=== PATIENT | female | born 1980 | race Caucasian/White ===

== ENCOUNTER 2017-07-06 10:29 | Emergency (ER) | payer SELFPAY ==
[2017-07-06 10:41] VITALS: BP 121/65
[2017-07-06 11:16] LABS: Mean Corpuscular HGB Conc 29 % (30-34); Platelet Count 397 K/mm3 (140-440); Red Blood Count 4.32 M/mm3 (3.65-5.03); White Blood Count 6.1 K/mm3 (4.5-11.0)
[2017-07-06 11:30] LABS: Hematocrit 26.2 % (30.3-42.9); Hemoglobin 7.7 gm/dl (10.1-14.3); Mean Corpuscular Hemoglobin 18 pg (28-32); Mean Corpuscular Volume 61 fl (79-97); Red Cell Distribution Width 28.4 % (13.2-15.2)
[2017-07-06 11:45] LABS: Anion Gap 17 mmol/L; Calcium 8.6 mg/dL (8.4-10.2); Carbon Dioxide 23 mmol/L (22-30); Potassium 4.1 mmol/L (3.6-5.0); Sodium 140 mmol/L (137-145)
[2017-07-06 12:08] LABS: Blood Urea Nitrogen 12 mg/dL (7-17); Glucose 89 mg/dL (65-100)
--- NOTE | 2017-07-06 12:09 | Cat Scan Report ---
CT HEAD WITHOUT CONTRAST: HISTORY: Headache, eye pressure. Serial contiguous axial images were obtained through the cranium. Intravenous contrast material was not administered. The ventricles are normal in size and appearance. There is no mass effect or midline shift. No areas of abnormally increased or decreased attenuation are seen. No mass lesion is seen. The mastoid air cells and visualized portions of the sinuses are normal. IMPRESSION: Cranial CT scan within normal limits.
[2017-07-06 12:28] LABS: Albumin 3.9 g/dL (3.9-5); Albumin/Globulin Ratio 1.1 %; Alkaline Phosphatase 45 units/L (35-129); Total Protein 7.5 g/dL (6.3-8.2)
[2017-07-06 12:40] LABS: Alanine Aminotransferase < 5 units/L (7-56); Bilirubin,Direct < 0.2 mg/dL (0-0.2); Bilirubin,Indirect 0.1 mg/dL
[2017-07-06 13:01] LABS: Basophils % (Manual) 0 % (0.0-1.8); Blastocytes % (Manual) 0 %; Eosinophils % (Manual) 8 % (0.0-4.3)
[2017-07-06 13:03] LABS: Hypochromasia 3+
[2017-07-06 13:04] LABS: Anisocytosis 3+; Microcytosis 2+
[2017-07-06 13:05] LABS: Diff Status Complete; Elliptocytes 1+; Poikilocytosis 1+
== END 2017-07-06 10:54 | disposition left against medical advice (07) ==
LOC: ED 10:29
DX: R51 Headache (principal); Z53.21 Procedure and treatment not carried out due to patient leaving prior to being seen by health care provider
CPT/HCPCS: 36415; 70450; 80048; 80074; 84703; 85007; 85025

== ENCOUNTER 2019-09-01 07:32 | Inpatient (IN) | payer OTHER ==
[2019-09-01] MEDS ORDERED: ONDANSETRON 4 MG/2 ML INJ IV ONE (08:15)
[2019-09-01] MEDS ORDERED: HYDROmorphone 1 MG/1 ML INJ IV ONE ×3 (08:15→10:52)
--- NOTE | 2019-09-01 08:19 | Emergency Department Report ---
ED Headache HPI - General Chief Complaint: Headache Stated Complaint: SEVERE HEADACHE SINCE FRIDAY Time Seen by Provider: 09/01/19 08:13 Source: patient Exam Limitations: no limitations - History of Present Illness Initial Comments: is a 39-year-old female that presents emergency room with complaints of left-sided headache. Patient states that her headache started approximately one week ago. Patient states the pain is worsening. Patient states the pain is extreme and severe. Patient states it is a 10 out of 10. Patient states the stabbing sensation. Patient states she has pseudotumor cerebri and was being followed by a neurologist but has not seen a neurologist for 2 years. Timing/Duration: 1 week Quality: severe, sharp, stabbing Head Injury Location: temporal Recent Head Trauma: no recent headache/trauma, occasional headaches Modifying Factors: improves with: exposure to light, movement, rest Associated Symptoms: fever/chills, nausea/vomiting Allergies/Adverse Reactions: Allergies No Known Allergies Allergy (Unverified 07/06/17 10:41) Home Medications: Ambulatory Orders No Known Home Medications [No Reported Home Medications] 09/01/19 ED Review of Systems ROS: Stated complaint: SEVERE HEADACHE SINCE FRIDAY Other details as noted in HPI Constitutional: chills, fever Eyes: denies: eye pain, eye discharge, vision change ENT: denies: ear pain, throat pain Respiratory: denies: cough, shortness of breath, wheezing Cardiovascular: denies: chest pain, palpitations Endocrine: no symptoms reported Gastrointestinal: denies: abdominal pain, nausea, diarrhea Genitourinary: denies: urgency, dysuria, discharge Musculoskeletal: denies: back pain, joint swelling, arthralgia Skin: denies: rash, lesions Neurological: headache. denies: weakness, paresthesias Psychiatric: denies: anxiety, depression Hematological/Lymphatic: denies: easy bleeding, easy bruising ED Past Medical Hx - Past Medical History Previous Medical History?: Yes Additional medical history: Pseudotumor Cerebri (diag in 2002). No longer being treated for contidition. - Surgical History Past Surgical History?: Yes Additional Surgical History: 2009 - Family History Family history: no significant - Social History Smoking Status: Never Smoker Substance Use Type: None - Medications Home Medications: Home Medications Medication Instructions Recorded Confirmed Last Taken Type No Known Home Medications [No 09/01/19 09/01/19 Unknown History Reported Home Medications] ED Physical Exam - General Limitations: No Limitations General appearance: alert, in no apparent distress - Head Head exam: Present: atraumatic, normocephalic - Eye Eye exam: Present: normal appearance, PERRL Pupils: Present: normal accommodation - ENT ENT exam: Present: mucous membranes moist - Neck Neck exam: Present: normal inspection, full ROM. Absent: tenderness, meningismus - Respiratory Respiratory exam: Present: normal lung sounds bilaterally. Absent: respiratory distress, wheezes, rales - Cardiovascular Cardiovascular Exam: Present: regular rate, normal rhythm. Absent: systolic murmur, diastolic murmur, rubs, gallop - GI/Abdominal GI/Abdominal exam: Present: soft, normal bowel sounds - Extremities Exam Extremities exam: Present: normal inspection - Back Exam Back exam: Present: normal inspection - Neurological Exam Neurological exam: Present: alert, oriented X3 - Psychiatric Psychiatric exam: Present: normal affect, normal mood - Skin Skin exam: Present: warm, dry, intact, normal color. Absent: rash ED Course Vital Signs 09/01/19 09/01/19 09/01/19 07:38 07:45 08:00 Temperature 99.5 F 100.6 F H Temperature [ Pre-Procedure] Pulse Rate 134 H 120 H 110 H Pulse Rate [ Intra-Procedure ] Pulse Rate [ Post-Procedure] Pulse Rate [Pre -Procedure] Respiratory 22 27 H 32 H Rate Respiratory Rate [Intra- Procedure] Respiratory Rate [Post- Procedure] Respiratory Rate [Pre- Procedure] Blood Pressure 126/60 Blood Pressure [Intra- Procedure] Blood Pressure 130/65 [Left] Blood Pressure [Post-Procedure ] Blood Pressure [Pre-Procedure] Blood Pressure 120/79 [Right] O2 Sat by Pulse 100 100 100 Oximetry O2 Sat by Pulse Oximetry [ Intra-Procedure ] O2 Sat by Pulse Oximetry [Post -Procedure] O2 Sat by Pulse Oximetry [Pre- Procedure] 09/01/19 09/01/19 09/01/19 08:15 08:45 09:00 Temperature Temperature [ Pre-Procedure] Pulse Rate 107 H 120 H 114 H Pulse Rate [ Intra-Procedure ] Pulse Rate [ Post-Procedure] Pulse Rate [Pre -Procedure] Respiratory 37 H 47 H 25 H Rate Respiratory Rate [Intra- Procedure] Respiratory Rate [Post- Procedure] Respiratory Rate [Pre- Procedure] Blood Pressure 117/67 117/67 117/69 Blood Pressure [Intra- Procedure] Blood Pressure [Left] Blood Pressure [Post-Procedure ] Blood Pressure [Pre-Procedure] Blood Pressure [Right] O2 Sat by Pulse 97 100 99 Oximetry O2 Sat by Pulse Oximetry [ Intra-Procedure ] O2 Sat by Pulse Oximetry [Post -Procedure] O2 Sat by Pulse Oximetry [Pre- Procedure] 09/01/19 09/01/19 09/01/19 09:31 09:45 10:01 Temperature Temperature [ Pre-Procedure] Pulse Rate 110 H 104 H 133 H Pulse Rate [ Intra-Procedure ] Pulse Rate [ Post-Procedure] Pulse Rate [Pre -Procedure] Respiratory 18 26 H 18 Rate Respiratory Rate [Intra- Procedure] Respiratory Rate [Post- Procedure] Respiratory Rate [Pre- Procedure] Blood Pressure 117/69 117/69 117/69 Blood Pressure [Intra- Procedure] Blood Pressure [Left] Blood Pressure [Post-Procedure ] Blood Pressure [Pre-Procedure] Blood Pressure [Right] O2 Sat by Pulse Oximetry O2 Sat by Pulse Oximetry [ Intra-Procedure ] O2 Sat by Pulse Oximetry [Post -Procedure] O2 Sat by Pulse Oximetry [Pre- Procedure] 09/01/19 09/01/19 09/01/19 10:15 10:30 10:45 Temperature 100.0 F H Temperature [ 100.0 F H Pre-Procedure] Pulse Rate 109 H 130 H Pulse Rate [ 123 H Intra-Procedure ] Pulse Rate [ Post-Procedure] Pulse Rate [Pre 130 H -Procedure] Respiratory 15 15 Rate Respiratory 17 Rate [Intra- Procedure] Respiratory Rate [Post- Procedure] Respiratory 15 Rate [Pre- Procedure] Blood Pressure 117/69 Blood Pressure 109/67 [Intra- Procedure] Blood Pressure 108/55 [Left] Blood Pressure [Post-Procedure ] Blood Pressure 108/55 [Pre-Procedure] Blood Pressure [Right] O2 Sat by Pulse 100 Oximetry O2 Sat by Pulse 100 Oximetry [ Intra-Procedure ] O2 Sat by Pulse Oximetry [Post -Procedure] O2 Sat by Pulse 100 Oximetry [Pre- Procedure] 09/01/19 09/01/19 09/01/19 10:54 13:06 13:33 Temperature 98.4 F Temperature [ Pre-Procedure] Pulse Rate 101 H 117 H Pulse Rate [ Intra-Procedure ] Pulse Rate [ 127 H Post-Procedure] Pulse Rate [Pre -Procedure] Respiratory 18 20 Rate Respiratory Rate [Intra- Procedure] Respiratory 24 Rate [Post- Procedure] Respiratory Rate [Pre- Procedure] Blood Pressure Blood Pressure [Intra- Procedure] Blood Pressure 113/61 119/62 [Left] Blood Pressure 131/64 [Post-Procedure ] Blood Pressure [Pre-Procedure] Blood Pressure [Right] O2 Sat by Pulse 97 100 Oximetry O2 Sat by Pulse Oximetry [ Intra-Procedure ] O2 Sat by Pulse 100 Oximetry [Post -Procedure] O2 Sat by Pulse Oximetry [Pre- Procedure] 09/01/19 09/01/19 13:38 13:53 Temperature 98.4 F 99.0 F Temperature [ Pre-Procedure] Pulse Rate 117 H 109 H Pulse Rate [ Intra-Procedure ] Pulse Rate [ Post-Procedure] Pulse Rate [Pre -Procedure] Respiratory 15 16 Rate Respiratory Rate [Intra- Procedure] Respiratory Rate [Post- Procedure] Respiratory Rate [Pre- Procedure] Blood Pressure 119/62 118/75 Blood Pressure [Intra- Procedure] Blood Pressure [Left] Blood Pressure [Post-Procedure ] Blood Pressure [Pre-Procedure] Blood Pressure [Right] O2 Sat by Pulse 100 100 Oximetry O2 Sat by Pulse Oximetry [ Intra-Procedure ] O2 Sat by Pulse Oximetry [Post -Procedure] O2 Sat by Pulse Oximetry [Pre- Procedure] - Reevaluation(s) Reevaluation #1: pt attempted to ambulate to the bathroom but was unable to due to weakness. 09/01/19 08:27 Reevaluation #2: Patient states her headache is better. 09/01/19 09:27 Reevaluation #3: Due to patient's clinical situation we will do a LP. Patient has agreed to have the LP done. Patient signed consent. See procedure note. 09/01/19 10:01 Reevaluation #4: I was unable to obtain CSF during LP. Patient will go to radiology and have a fluoroscopy-guided lumbar puncture. I will discuss the case with the radiologist. 09/01/19 10:52 Reevaluation #5: Discussed all results with patient. I discussed plan of care with patient. Patient agrees with plan of care. She states her headache is improving since having the LP done. 09/01/19 13:45 - Consultations Consultation #1: ID consulted for meningitis management. Recommendations for treatment from Dr. Levin. 09/01/19 09:46 I discussed clinical situation with Dr. Levin, infectious disease. I discussed all results with Dr. Levin. Dr. Levin asked for a consult placed. 09/01/19 13:20 Consultation #2: Hospitalist consult for admission. Hospitalist admit patient. Bridge orders place. 09/01/19 10:22 Consultation #3: I discussed case with Dr. Newell. Dr. Newell states he will do a fluoroscopy guided LP. 09/01/19 11:02 - Lumbar Puncture Consent Obtained: verbal consent, written consent Time Out Performed: Yes Indication for Procedure: headache, fever work up Patient Position: left lateral decubitus Skin Prep: Povidone-Iodine 1% Local Anesthetic Used: Lidocaine 1% Amount of anesthesia used (mls): 6 Spinal Needle Gauge: 20G Spinal Needle Length: 4in Interspace Used: L4-L5 Complications: unable to obtain CSF Patient Tolerated Procedure: well, no complications Additional Comments: Unable to obtain CSF. Patient will be sent to radiology for fluoroscopy guided LP ED Medical Decision Making - Lab Data Result diagrams: 09/01/19 08:25 09/01/19 08:25 - Radiology Data Radiology results: report reviewed, image reviewed No acute findings on head CT. - Medical Decision Making Patient is a 39-year-old male that presents emergency room with complaints of headache and fever. Patient has a history of pseudotumor cerebri. Patient has had multiple LPs in the past. Due to the patient's clinical scenario, the patient had an LP done. Patient's LP was difficult and had to be done in the radiology department under fluoroscopy. Patient's CSF since the labs unremarkable. Patient states labs unremarkable except for a UTI, elevated WBC and severe anemia. Required multiple pain medications. Patient had an abnormal gait due to her headache and weakness. Patient admitted to the hospitalist service. Infectious disease consultation for assistance in recommendations with management of the patient. Patient's clinical findings consistent with a headache, intractable pain, weakness, Sirs, severe anemia. Patient was transfused in the ER. - Differential Diagnosis headache. Intractable pain. Weakness. Meningitis. Pseudotumor. sirs Critical Care Time: Yes Critical care time in (mins) excluding proc time.: 80 Critical care attestation.: If time is entered above; I have spent that time in minutes in the direct care of this critically ill patient, excluding procedure time. Critical Care Time: 80 minutes ED Disposition Clinical Impression: SIRS (systemic inflammatory response syndrome), Weakness, Tachycardia Headache Qualifiers: Headache type: unspecified Headache chronicity pattern: acute headache Intractability: intractable Qualified Code(s): R51 - Headache UTI (urinary tract infection) Qualifiers: Urinary tract infection type: acute cystitis Hematuria presence: with hematuria Qualified Code(s): N30.01 - Acute cystitis with hematuria Anemia Qualifiers: Anemia type: unspecified type Qualified Code(s): D64.9 - Anemia, unspecified Fever Qualifiers: Fever type: unspecified Qualified Code(s): R50.9 - Fever, unspecified Disposition: 09 OP ADMIT IP TO THIS HOSP Is pt being admited?: Yes Does the pt Need Aspirin: No Condition: Critical Time of Disposition: 11:01
[2019-09-01 08:57] LABS: Mean Corpuscular HGB Conc 27 % (30-34); Platelet Count 423 K/mm3 (140-440); Red Blood Count 4.21 M/mm3 (3.65-5.03)
[2019-09-01 08:58] LABS: Hematocrit 22.6 % (30.3-42.9); Mean Corpuscular Volume 54 fl (79-97)
[2019-09-01 09:03] LABS: Alanine Aminotransferase 22 units/L (7-56); Albumin 3.6 g/dL (3.9-5); BUN/Creatinine Ratio 11; Blood Urea Nitrogen 8 mg/dL (7-17); Calcium 8.8 mg/dL (8.4-10.2); Hemolysis Index 8
[2019-09-01 09:21] LABS: Erythrocyte Sedimentation Rate > 140.0 mm/Hr (0-20)
[2019-09-01 09:36] LABS: Bacteria,Urine 1+ /HPF (Negative); Bilirubin,Urine NEG (Negative); Blood,Urine LG (Negative); Color,Urine Yellow (Yellow); Mucus,Urine FEW /HPF
--- NOTE | 2019-09-01 09:36 | Cat Scan Report ---
CT HEAD WITHOUT CONTRAST INDICATION / CLINICAL INFORMATION: Headache. TECHNIQUE: Axial imaging performed from the skull apex through the skull base without the use of cont rast. Sagittal and coronal reformatted images. All CT scans at this location are performed using CT dose reduction for ALARA by means of automated exposure control. COMPARISON: 07/06/2017 FINDINGS: CEREBRAL PARENCHYMA: No significant abnormality. No acute territorial infarct. HEMORRHAGE: None. EXTRA-AXIAL SPACES: Normal in size and morphology for the patient's age. VENTRICULAR SYSTEM: Normal in size and morphology for the patient's age. MIDLINE SHIFT OR HERNIATION: None. CEREBELLUM / BRAINSTEM: No significant abnormality. CALVARIUM: No significant abnormality. ORBITS: Normal as visualized. PARANASAL SINUSES / MASTOID AIR CELLS: Normal as visualized. SOFT TISSUES of HEAD: No significant abnormality. ADDITIONAL FINDINGS: None. IMPRESSION: No acute intracranial abnormality. Cranial CT scan within normal limits. Signer Name: Peter Newell Jr, MD Signed: 09/01/2019 9:31 AM Workstation Name: [id number]
[2019-09-01 09:40] LABS: RBC,Urine > 182.0 /HPF (0.0-6.0)
[2019-09-01 09:54] LABS: Eosinophils % (Manual) 0 % (0.0-4.3); Hypochromasia 3+; Target Cells Few; Tear Drop Cells Few; Total Cells Counted 100
[2019-09-01 09:55] LABS: Anisocytosis 2+; Large Platelets Rare; Platelet Clumps Rare; Platelet Estimate Consistent w Auto
[2019-09-01] MEDS ORDERED: cefTRIAXone/NS 2 GM/100 ML 2 GM/100 ML BAG IV ONE ×2 (10:03→12:29)
[2019-09-01] MEDS ORDERED: methylPREDNISolone Sod Succinate 125 MG/2 ML INJ IV ONE (10:11)
[2019-09-01] MEDS ORDERED: HYDROmorphone 1 MG/1 ML INJ ONE ×2 (10:28→10:47)
[2019-09-01] MEDS ORDERED: ACYCLOVIR IV ONE ×2 (10:30→11:00)
[2019-09-01] MEDS ORDERED: SODIUM CHLORIDE 0.9% IV ONE ×2 (10:30→11:00)
[2019-09-01] MEDS ORDERED: LIDOCAINE (1%) 10 MG/1 ML VIAL 20 ML MDV INFILTRATI ONE (10:40)
[2019-09-01] MEDS: LIDOCAINE (1%) 10 MG/1 ML VIAL 20 ML MDV ONE ×2 (10:45→13:55)
[2019-09-01] MEDS ORDERED: LIDOCAINE (1%) 10 MG/1 ML VIAL 20 ML MDV ONE (10:47)
[2019-09-01] MEDS ORDERED: SODIUM CHLORIDE 0.9% 1000 ML 1,000 ML ONE (10:48)
[2019-09-01] MEDS ORDERED: SODIUM CHLORIDE 0.9% 1000 ML 1,000 ML IV ONE (10:54)
[2019-09-01] MEDS ORDERED: SODIUM CHLORIDE 0.9% 500 ML 500 ML IV ONE (12:10)
[2019-09-01] MEDS ORDERED: CEFEPIME/NS 2 GM/100 ML 2 GM/100 ML BAG IV ONE (12:29)
--- NOTE | 2019-09-01 12:34 | History and Physical Report ---
History of Present Illness Date of admission: 09/01/19 10:10 Chief complaint: fever and WINKLER History of present illness: 39-year-old woman who presents to the hospital with headache and fevers. She is also complaining of menorrhagia she is currently on her period. She is been having heavier and heavier periods for some time now. She is vegan and has been trying to keep up with her iron intake but admits that it has been difficult. Patient denies neck stiffness, denies diarrhea, denies cough, denies sputum production. She denies any visual changes. No blurred vision, no loss of vision At this time the patient reports a frontal headache which is about 6 out of 10. Symptoms have been going on for a few days. Denies any sick contacts. Past History Past Medical History: No medical history Past Surgical History: Other (underarm lipoma removed as child) Social history: no significant social history. denies: smoking, alcohol abuse, prescription drug abuse, IV drug use Family history: other (paternal aunt has breast ca, sister has anemia) Medications and Allergies Allergies Allergy/AdvReac Type Severity Reaction Status Date / Time No Known Allergies Allergy Unverified 07/06/17 10:41 Home Medications Medication Instructions Recorded Confirmed Last Taken Type No Known Home Medications [No 09/01/19 09/01/19 Unknown History Reported Home Medications] Active Meds: Active Medications Acyclovir 830 mg/ Sodium (Chloride) 266.6 mls @ 100 mls/hr IV ONCE ONE; Protocol Stop: 09/01/19 13:39 Review of Systems All systems: negative Constitutional: weakness, no weight loss Ears, nose, mouth and throat: no ear pain Cardiovascular: no chest pain Respiratory: no cough Gastrointestinal: no nausea Genitourinary Female: dysmenorrhea, menorrhagia Menstruation: currently menstrual Musculoskeletal: no neck stiffness Integumentary: no rash Neurological: no head injury Psychiatric: no anxiety Endocrine: no cold intolerance Hematologic/Lymphatic: no easy bruising Allergic/Immunologic: no urticaria Exam - Constitutional Vitals: Temp Pulse Resp BP Pulse Ox 100.0 F H 127 H 24 131/64 100 09/01/19 10:30 09/01/19 10:54 09/01/19 10:54 09/01/19 10:54 09/01/19 10:54 General appearance: Present: no acute distress, well-nourished - EENT Eyes: Present: PERRL ENT: hearing intact, clear oral mucosa - Neck Neck: Present: supple, normal ROM - Respiratory Respiratory effort: normal Respiratory: bilateral: CTA - Cardiovascular Heart Sounds: Present: S1 & S2. Absent: rub, click - Extremities Extremities: pulses symmetrical, No edema Peripheral Pulses: within normal limits - Abdominal General gastrointestinal: Present: soft, non-tender, non-distended, normal bowel sounds Female genitourinary: Present: normal - Integumentary Integumentary: Present: clear, warm, dry - Musculoskeletal Musculoskeletal: gait normal, strength equal bilaterally - Psychiatric Psychiatric: appropriate mood/affect, intact judgment & insight - Neurologic Neurologic: CNII-XII intact, moves all extremities Results - Labs CBC & Chem 7: 09/01/19 08:25 09/01/19 08:25 Labs: Laboratory Last Values WBC 18.9 K/mm3 (4.5-11.0) H 09/01/19 08:25 RBC 4.21 M/mm3 (3.65-5.03) 09/01/19 08:25 Hgb 6.0 gm/dl (10.1-14.3) L 09/01/19 08:25 Hct 22.6 % (30.3-42.9) L 09/01/19 08:25 MCV 54 fl (79-97) L 09/01/19 08:25 MCH 14 pg (28-32) L 09/01/19 08:25 MCHC 27 % (30-34) L 09/01/19 08:25 RDW 26.0 % (13.2-15.2) H 09/01/19 08:25 Plt Count 423 K/mm3 (140-440) 09/01/19 08:25 Lymph % (Auto) [employer] 09/01/19 08:25 [place] % (Auto) [employer] 09/01/19 08:25 Eos % (Auto) [employer] 09/01/19 08:25 Baso % (Auto) [employer] 09/01/19 08:25 Lymph # [employer] 09/01/19 08:25 [place] # [employer] 09/01/19 08:25 Eos # [employer] 09/01/19 08:25 Baso # [employer] 09/01/19 08:25 Add Manual Diff Complete 09/01/19 08:25 Total Counted 100 09/01/19 08:25 Seg Neutrophils % [employer] 09/01/19 08:25 Seg Neuts % (Manual) 77.0 % (40.0-70.0) H 09/01/19 08:25 Band Neutrophils % 0 % 09/01/19 08:25 Lymphocytes % (Manual) 13.0 % (13.4-35.0) L 09/01/19 08:25 Reactive Lymphs % (Man) 1.0 % 09/01/19 08:25 Monocytes % (Manual) 8.0 % (0.0-7.3) H 09/01/19 08:25 Eosinophils % (Manual) 0 % (0.0-4.3) 09/01/19 08:25 Basophils % (Manual) 1.0 % (0.0-1.8) 09/01/19 08:25 Metamyelocytes % 0 % 09/01/19 08:25 Myelocytes % 0 % 09/01/19 08:25 Promyelocytes % 0 % 09/01/19 08:25 Blast Cells % 0 % 09/01/19 08:25 Nucleated RBC % Not Reportable 09/01/19 08:25 Seg Neutrophils # [employer] 09/01/19 08:25 Seg Neutrophils # Man 14.6 K/mm3 (1.8-7.7) H 09/01/19 08:25 Band Neutrophils # 0.0 K/mm3 09/01/19 08:25 Lymphocytes # (Manual) 2.5 K/mm3 (1.2-5.4) 09/01/19 08:25 Abs React Lymphs (Man) 0.2 K/mm3 09/01/19 08:25 Monocytes # (Manual) 1.5 K/mm3 (0.0-0.8) H 09/01/19 08:25 Eosinophils # (Manual) 0.0 K/mm3 (0.0-0.4) 09/01/19 08:25 Basophils # (Manual) 0.2 K/mm3 (0.0-0.1) H 09/01/19 08:25 Metamyelocytes # 0.0 K/mm3 09/01/19 08:25 Myelocytes # 0.0 K/mm3 09/01/19 08:25 Promyelocytes # 0.0 K/mm3 09/01/19 08:25 Blast Cells # 0.0 K/mm3 09/01/19 08:25 WBC Morphology Not Reportable 09/01/19 08:25 Hypersegmented Neuts Not Reportable 09/01/19 08:25 Hyposegmented Neuts Not Reportable 09/01/19 08:25 Hypogranular Neuts Not Reportable 09/01/19 08:25 Smudge Cells Not Reportable 09/01/19 08:25 Toxic Granulation Not Reportable 09/01/19 08:25 Toxic Vacuolation Not Reportable 09/01/19 08:25 Dohle Bodies Not Reportable 09/01/19 08:25 Pelger-Huet Anomaly Not Reportable 09/01/19 08:25 Bhaskar Rods Not Reportable 09/01/19 08:25 Platelet Estimate Consistent w auto 09/01/19 08:25 Clumped Platelets Rare 09/01/19 08:25 Plt Clumps, EDTA Not Reportable 09/01/19 08:25 Large Platelets Rare 09/01/19 08:25 Giant Platelets Not Reportable 09/01/19 08:25 Platelet Satelliting Not Reportable 09/01/19 08:25 Plt Morphology Comment Not Reportable 09/01/19 08:25 RBC Morphology Not Reportable 09/01/19 08:25 Dimorphic RBCs Not Reportable 09/01/19 08:25 Polychromasia Not Reportable 09/01/19 08:25 Hypochromasia 3+ 09/01/19 08:25 Poikilocytosis Not Reportable 09/01/19 08:25 Anisocytosis 2+ 09/01/19 08:25 Microcytosis 2+ 09/01/19 08:25 Macrocytosis Not Reportable 09/01/19 08:25 Spherocytes Not Reportable 09/01/19 08:25 Pappenheimer Bodies Not Reportable 09/01/19 08:25 Sickle Cells Not Reportable 09/01/19 08:25 Target Cells Few 09/01/19 08:25 Tear Drop Cells Few 09/01/19 08:25 Ovalocytes Not Reportable 09/01/19 08:25 Helmet Cells Not Reportable 09/01/19 08:25 [place] Bodies Not Reportable 09/01/19 08:25 [place] Rings Not Reportable 09/01/19 08:25 [place] Cells Not Reportable 09/01/19 08:25 Bite Cells Not Reportable 09/01/19 08:25 Crenated Cell Not Reportable 09/01/19 08:25 Elliptocytes Not Reportable 09/01/19 08:25 Acanthocytes (Spur) Not Reportable 09/01/19 08:25 Rouleaux Not Reportable 09/01/19 08:25 Hemoglobin C Crystals Not Reportable 09/01/19 08:25 Schistocytes Not Reportable 09/01/19 08:25 Malaria parasites Not Reportable 09/01/19 08:25 ESR > 140.0 mm/Hr (0-20) 09/01/19 08:25 Navneet Bodies Not Reportable 09/01/19 08:25 Hem Pathologist Commnt No 09/01/19 08:25 Sodium 136 mmol/L (137-145) L 09/01/19 08:25 Potassium 4.1 mmol/L (3.6-5.0) 09/01/19 08:25 Chloride 99.3 mmol/L (98-107) 09/01/19 08:25 Carbon Dioxide 19 mmol/L (22-30) L 09/01/19 08:25 Anion Gap 22 mmol/L 09/01/19 08:25 BUN 8 mg/dL (7-17) 09/01/19 08:25 Creatinine 0.7 mg/dL (0.7-1.2) 09/01/19 08:25 Estimated GFR > 60 ml/min 09/01/19 08:25 BUN/Creatinine Ratio 11 % 09/01/19 08:25 Glucose 101 mg/dL (65-100) H 09/01/19 08:25 Lactic Acid 1.60 mmol/L (0.7-2.0) 09/01/19 09:29 Calcium 8.8 mg/dL (8.4-10.2) 09/01/19 08:25 Total Bilirubin 0.50 mg/dL (0.1-1.2) 09/01/19 08:25 AST 50 units/L (5-40) H 09/01/19 08:25 ALT 22 units/L (7-56) 09/01/19 08:25 Alkaline Phosphatase 129 units/L (35-129) 09/01/19 08:25 Total Protein 9.0 g/dL (6.3-8.2) H 09/01/19 08:25 Albumin 3.6 g/dL (3.9-5) L 09/01/19 08:25 Albumin/Globulin Ratio 0.7 % 09/01/19 08:25 HCG, Qual Negative (Negative) 09/01/19 09:29 Urine Color Yellow (Yellow) 09/01/19 09:11 Urine Turbidity Slightly-cloudy (Clear) 09/01/19 09:11 Urine pH 8.0 (5.0-7.0) H 09/01/19 09:11 Ur Specific [place] 1.015 (1.003-1.030) 09/01/19 09:11 Urine Protein 100 mg/dl mg/dL (Negative) 09/01/19 09:11 Urine Glucose (UA) Neg mg/dL (Negative) 09/01/19 09:11 Urine Ketones Neg mg/dL (Negative) 09/01/19 09:11 Urine Blood Lg (Negative) 09/01/19 09:11 Urine Nitrite Neg (Negative) 09/01/19 09:11 Urine Bilirubin Neg (Negative) 09/01/19 09:11 Urine Urobilinogen 4.0 mg/dL (<2.0) 09/01/19 09:11 Ur Leukocyte Esterase Mod (Negative) 09/01/19 09:11 Urine WBC (Auto) 81.0 /HPF (0.0-6.0) H 09/01/19 09:11 Urine RBC (Auto) > 182.0 /HPF (0.0-6.0) 09/01/19 09:11 U Epithel Cells (Auto) 3.0 /HPF (0-13.0) 09/01/19 09:11 Urine Bacteria (Auto) 1+ /HPF (Negative) 09/01/19 09:11 Ur Transition Epith Cell 2 /HPF 09/01/19 09:11 Urine Mucus Few /HPF 09/01/19 09:11 Blood Type A POSITIVE 09/01/19 10:15 Antibody Screen Negative 09/01/19 10:15 Crossmatch See Detail 09/01/19 10:15 Assessment and Plan Assessment and plan: 39F w hx of pseudomotor cerebri who pw WINKLER and fever -she is also c/o heavy menstrual bleeding, weakness Acute on chronic blood loss anemia microcytic which supports blood loss, she is actively getting transfusion. Iron supplements. Explained to patient that she needs to be on daily iron supplements given that she is vegan. -Likely has blood loss from menorrhagia. Menorrhagia Obtain pelvic ultrasound and transvaginal ultrasound, [employer] consulted Headache/fever/Sirs LP was negative, case discussed with neurologist, anemia can cause trigeminal neuralgia which can be a contributing cause of headache. He recommended carbamazepine as needed We will work-up for flu, rapid flu ordered, droplet precautions, Tamiflu until flu ruled out History of pseudomotor cerebri CT scan is negative, LP was done and opening pressure was 190. She does not have active pseudomotor cerebri at this time. No further work-up indicated DVT prophylaxis Early ambulation, avoid blood thinners given LP that was done 09/01
[2019-09-01] MEDS ORDERED: ACETAMINOPHEN 325 MG TAB PO PRN (12:35)
[2019-09-01] MEDS ORDERED: HYDROcodone/ACETAMINOPHEN 5-325 MG TAB PO PRN (12:35)
[2019-09-01] MEDS ORDERED: ONDANSETRON 4 MG/2 ML INJ IV PRN (12:35)
--- NOTE | 2019-09-01 12:36 | Fluoroscopy Report ---
LUMBAR PUNCTURE INDICATION : Headache, fever, pseudotumor cerebri PROCEDURE: The risks (including but not limited to bleeding, infection, and spinal headache) and sheri efits were explained to the patient and informed consent was obtained. A time out procedure was perf ormed. The procedure site was prepped and draped in the usual sterile fashion and lidocaine was used for local anesthesia. Under fluoroscopic guidance, a 22-gauge spinal needle was advanced into the L3-4 interlaminar space. The opening pressure was 190 mm H2O which was calculated by adding the length of the needle (9 cm) to the height of the CSF column. 4 separate collection tubes were used to obtain 2 cc of CSF each. Samp les were sent to the lab per the ordering physician specifications for further evaluation. The closing pressure measured 140 mm H2O. The patient tolerated the procedure well with no complications. IMPRESSION: Successful lumbar puncture as outlined above. Opening pressure was mildly elevated measuring 190 mm H20. Fluoroscopic time: 0.5 Number of fluoroscopic images: 1 Signer Name: Peter Newell Jr, MD Signed: 09/01/2019 12:32 PM Workstation Name: [id number]
[2019-09-01] MEDS ORDERED: diphenhydrAMINE 50 MG/ML VIAL IV ONE (12:41)
[2019-09-01] MEDS ORDERED: diphenhydrAMINE 50 MG/ML VIAL ONE (12:44)
[2019-09-01 13:07] LABS: Glucose,CSF 71 mg/dL
[2019-09-01] MEDS ORDERED: SODIUM CHLORIDE 0.9% 500 ML 500 ML ONE (13:21)
[2019-09-01 13:33] LABS: Appearance,CSF Clear; Red Blood Cell,CSF 0 /mm3 (0-0); Total Cells Counted 4 /mm3; White Blood Cell,CSF 3 /mm3 (1-10)
[2019-09-01] MEDS: CEFEPIME/NS 2 GM/100 ML 2 GM/100 ML BAG IV ONE ×2 (13:40→13:52)
--- NOTE | 2019-09-01 14:59 | Procedure Note ---
Date of procedure: 09/01/19 Pre-op diagnosis: headache Post-op diagnosis: same Procedure: flouro guided lumbar puncture Findings: elevated pressure Anesthesia: local Surgeon: CATHERINE MCGRATH Estimated blood loss: none Pathology: list (4 CSF tubes) Specimen disposition: to lab Condition: stable Disposition: floor
--- NOTE | 2019-09-01 15:35 | Consultation ---
Medications and Allergies Allergies Allergy/AdvReac Type Severity Reaction Status Date / Time No Known Allergies Allergy Unverified 07/06/17 10:41 Home Medications Medication Instructions Recorded Confirmed Last Taken Type No Known Home Medications [No 09/01/19 09/01/19 Unknown History Reported Home Medications] Active Meds: Active Medications Acetaminophen (Tylenol) 650 mg PO Q4H PRN PRN Reason: Pain MILD(1-3)/Fever >100.5/WINKLER Acetaminophen/Hydrocodone Bitart ([place] 5/325) 2 each PO Q6H PRN PRN Reason: Pain, Moderate (4-6) Acetazolamide (Diamox) 250 mg PO TID JAIME Hydromorphone HCl (Dilaudid) 1 mg IV Q3H PRN PRN Reason: Pain , Severe (7-10) Sodium Chloride (Nacl 0.9% 1000 Ml) 1,000 mls @ 125 mls/hr IV DIRECT JAIME Ceftriaxone Sodium (Rocephin/Ns 1 Gm/50 Ml) 1 gm in 50 mls @ 100 mls/hr IV Q24HR JAIME; Protocol Ondansetron HCl (Zofran) 4 mg IV Q8H PRN PRN Reason: Nausea And Vomiting Sodium Chloride (Sodium Chloride Flush Syringe 10 Ml) 10 ml IV BID JAIME Sodium Chloride (Sodium Chloride Flush Syringe 10 Ml) 10 ml IV PRN PRN PRN Reason: LINE FLUSH Physical Examination - Vital Signs Vital Signs: Vital Signs Temp Pulse Resp BP Pulse Ox 99.5 F 134 H 22 120/79 100 09/01/19 07:38 09/01/19 07:38 09/01/19 07:38 09/01/19 07:38 09/01/19 07:38 Results - Laboratory Findings CBC and BMP: 09/01/19 08:25 09/01/19 08:25 Abnormal Lab Findings: Abnormal Labs 09/01/19 09/01/19 09/01/19 08:25 08:25 09:11 WBC 18.9 H Hgb 6.0 L Hct 22.6 L MCV 54 L MCH 14 L MCHC 27 L RDW 26.0 H Seg Neuts % (Manual) 77.0 H Lymphocytes % (Manual) 13.0 L Monocytes % (Manual) 8.0 H Seg Neutrophils # Man 14.6 H Monocytes # (Manual) 1.5 H Basophils # (Manual) 0.2 H Sodium 136 L Carbon Dioxide 19 L Glucose 101 H AST 50 H Total Protein 9.0 H Albumin 3.6 L Urine pH 8.0 H Urine WBC (Auto) 81.0 H Crossmatch 09/01/19 10:15 WBC Hgb Hct MCV MCH MCHC RDW Seg Neuts % (Manual) Lymphocytes % (Manual) Monocytes % (Manual) Seg Neutrophils # Man Monocytes # (Manual) Basophils # (Manual) Sodium Carbon Dioxide Glucose AST Total Protein Albumin Urine pH Urine WBC (Auto) Crossmatch See Detail Assessment and Plan 39 YEAR OLD FEMALE WITH HISTORY OF INCREASED MENSTRUAL BLEED, PSEUDO TUMOR CEREBRI AND NO OTHER SIGNIFICANT MEDICAL PROBLEM WHO CAME TO THE EMERGENCY TODAY BECAUSE OF HEADACHE WHICH STARTED ON08/28/2019. SHE DESCRIBES THE HEADACHE DULL AND A PRESSURE SENSATION AROUND HER HEAD GIVING HER A FEELING IF SHE IS WEARING A TIGHT HAT AND ALSO IF THERE IS A TIGHT BAND AROUND HER HEAD. PATIENT IS GOING THROUGH A SIGNIFICANT STRESSFUL PERIOD WITH CHILD CUSTODY ISSUES. SHE ALSO STATES THAT SHE FEELS ELECTRIC LIKE PAINFUL SENSATION VERY SHARP ON THE LEFT ANTERIOR TEMPORAL REGION LASTING FOR FEW SECONDS INTERMITTENTLY MORE THAN 20 TIMES A DAY. WORK UP AFTER ADMISSION SHOWED SHE IS SEVERELY ANAEMIC WITH A HEMOGLOBIN COUNT OF 6.CT SCAN OF THE BRAIN DID NOT SHOW ANY ACUTE CHANGE,LP DONE DID NOT SHOW ANY EVIDENCE OF INCREASED INTRA CRANIAL PRESSURE. PHYSICAL EXAMINATION- GENERAL - IN NO ACUTE DISTRESS, PATIENT IS ALERT AND APPROPRIATE, HAS INSIGHT I NTO HER CONDITION AND ANSWERS QUESTIONS APPROPRIATELY. HEART-NORMAL RATE AND RHYTHM CAROTIDS- BOTH PALPABLE. CRANIAL NERVES. NO FACIAL ASYMMETRY OR WEAKNESS. PUPILS REACT TO LIGHT,EXTRA OCULAR MOVEMENT IS INTACT. OTHER CRANIAL NERVES ARE WITH IN NORMAL LIMIT. MOTOR- NORMAL STRENGTH IN ALL FOUR EXTREMITIES WITH OUT ANY ASYMMETRY. REFLEXES- ALL REFLEXES ARE NORMAL WITH BILATERAL DOWN GOING TOES. COORDINATION- FINGER TO NOSE IS NORMAL. SENSORY- SENSORY EXAMINATION IS GROSSLY WITH IN NORMAL LIMIT. IMPRESSION. 1. TRIGEMINAL NEURALGIA AND TENSION TYPE HEADACHE BOTH OF WHICH ARE EXACERBATED BY SEVERE ANAEMIA. RECOMMEND. 1.AFTER TREATMENT OF ANAEMIA WITH BLOOD TRANSFUSION SYMPTOMS ARE EXPECTED TO IMPROVE SIGNIFICANTLY. 2. CARBAMAZEPINE 100 MG PO BID IF RECURRENT SYMPTOMS OF TRIGEMINAL NEURALGIA 3. FLEXERIL 5 MG ALONG WITH TYELENOL 500MG PO TID PRN.
[2019-09-01] MEDS: SODIUM CHLORIDE 0.9% 1000 ML 1,000 ML IV SCH (15:53)
[2019-09-01] MEDS: acetaZOLAMIDE 250 MG TAB PO SCH ×2 (15:53→21:48)
[2019-09-01] MEDS ORDERED: CYCLOBENZAPRINE 10 MG TAB PO PRN (16:01)
[2019-09-01] MEDS ORDERED: carBAMazepine 100 MG TAB CHEW PO PRN (16:01)
[2019-09-01] MEDS: OSELTAMIVIR 75 MG CAP PO SCH ×2 (17:50→21:48)
--- NOTE | 2019-09-01 17:51 | Consultation ---
History of Present Illness Consult date: 09/01/19 Requesting physician: JENNIFER SANTANA Reason for consult: menorrhagia History of present illness: Pt seen in ED for headaches and vaginal bleeding. Noted to have hbg of 6.0. Pt states she has had heavy periods with passing of clots for the past 3 years. She has not had any work up or ever been told she had fibroids. She denies any pelvic sonogram. She is not taking any hormonal contraceptives at this time as she states she has had a BTL. This current period has been for the last 3 days. She has a h/o an abnormal pap 3 years ago was to have a colposcopy and never had follow up.Pt is s/p one unit of blood and states that her headache has improved. She just changed her padding so pelvic not done a this time to assess bleeding. 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 History: abnormal PAP smear Social history: no significant social history Medications and Allergies Allergies Allergy/AdvReac Type Severity Reaction Status Date / Time No Known Allergies Allergy Unverified 07/06/17 10:41 Home Medications Medication Instructions Recorded Confirmed Last Taken Type No Known Home Medications [No 09/01/19 09/01/19 Unknown History Reported Home Medications] Active Meds: Active Medications Acetaminophen (Tylenol) 650 mg PO Q4H PRN PRN Reason: Pain MILD(1-3)/Fever >100.5/WINKLER Acetaminophen/Hydrocodone Bitart ([place] 5/325) 2 each PO Q6H PRN PRN Reason: Pain, Moderate (4-6) Acetazolamide (Diamox) 250 mg PO TID [facility] Last Admin: 09/01/19 15:53 Dose: 250 mg Documented by: Carbamazepine (Tegretol) 100 mg PO BID PRN PRN Reason: Headache Cyclobenzaprine HCl (Flexeril) 5 mg PO Q8H PRN PRN Reason: Muscle Spasm Hydromorphone HCl (Dilaudid) 1 mg IV Q3H PRN PRN Reason: Pain , Severe (7-10) Sodium Chloride (Nacl 0.9% 1000 Ml) 1,000 mls @ 125 mls/hr IV DIRECT JAIME Last Admin: 09/01/19 15:53 Dose: 125 mls/hr Documented by: Multivitamins/Minerals (Theragran-M Tab) 1 each PO QDAY [facility] Ondansetron HCl (Zofran) 4 mg IV Q8H PRN PRN Reason: Nausea And Vomiting Oseltamivir Phosphate (Tamiflu) 75 mg PO BID JAIME Stop: 09/05/19 22:01 Last Admin: 09/01/19 17:50 Dose: 75 mg Documented by: Sodium Chloride (Sodium Chloride Flush Syringe 10 Ml) 10 ml IV BID [facility] Sodium Chloride (Sodium Chloride Flush Syringe 10 Ml) 10 ml IV PRN PRN PRN Reason: LINE FLUSH Review of Systems All systems: negative - Vital Signs Vital signs: Vital Signs Temp Pulse Resp BP Pulse Ox 99.5 F 134 H 22 120/79 100 09/01/19 07:38 09/01/19 07:38 09/01/19 07:38 09/01/19 07:38 09/01/19 07:38 Temp Pulse Resp BP Pulse Ox 99.4 F 94 H 18 117/69 99 09/01/19 14:23 09/01/19 14:44 09/01/19 14:23 09/01/19 14:44 09/01/19 14:44 - Physical Exam Lungs: Positive: Normal air movement Abdomen: Positive: normal appearance Genitourinary (Female): Positive: other (deferred) Extremities: Positive: normal. Negative: tenderness, edema Results Result Diagrams: 09/01/19 08:25 09/01/19 08:25 Abnormal lab results 09/01/19 09/01/19 09/01/19 Range/Units 08:25 08:25 09:11 WBC 18.9 H (4.5-11.0) K/mm3 Hgb 6.0 L (10.1-14.3) gm/dl Hct 22.6 L (30.3-42.9) % MCV 54 L (79-97) fl MCH 14 L (28-32) pg MCHC 27 L (30-34) % RDW 26.0 H (13.2-15.2) % Seg Neuts % (Manual) 77.0 H (40.0-70.0) % Lymphocytes % (Manual) 13.0 L (13.4-35.0) % Monocytes % (Manual) 8.0 H (0.0-7.3) % Seg Neutrophils # Man 14.6 H (1.8-7.7) K/mm3 Monocytes # (Manual) 1.5 H (0.0-0.8) K/mm3 Basophils # (Manual) 0.2 H (0.0-0.1) K/mm3 Sodium 136 L (137-145) mmol/L Carbon Dioxide 19 L (22-30) mmol/L Glucose 101 H (65-100) mg/dL AST 50 H (5-40) units/L Total Protein 9.0 H (6.3-8.2) g/dL Albumin 3.6 L (3.9-5) g/dL Urine pH 8.0 H (5.0-7.0) Urine WBC (Auto) 81.0 H (0.0-6.0) /HPF Crossmatch 09/01/19 Range/Units 10:15 WBC (4.5-11.0) K/mm3 Hgb (10.1-14.3) gm/dl Hct (30.3-42.9) % MCV (79-97) fl MCH (28-32) pg MCHC (30-34) % RDW (13.2-15.2) % Seg Neuts % (Manual) (40.0-70.0) % Lymphocytes % (Manual) (13.4-35.0) % Monocytes % (Manual) (0.0-7.3) % Seg Neutrophils # Man (1.8-7.7) K/mm3 Monocytes # (Manual) (0.0-0.8) K/mm3 Basophils # (Manual) (0.0-0.1) K/mm3 Sodium (137-145) mmol/L Carbon Dioxide (22-30) mmol/L Glucose (65-100) mg/dL AST (5-40) units/L Total Protein (6.3-8.2) g/dL Albumin (3.9-5) g/dL Urine pH (5.0-7.0) Urine WBC (Auto) (0.0-6.0) /HPF Crossmatch See Detail All other labs normal. Assessment and Plan - Patient Problems (1) Menorrhagia with regular cycle Current Visit: Yes Status: Acute Plan to address problem: -pt needs full work up for bleeding including pap, endometrial biopsy, and pelvic sonogram. Sono has been ordered will await results. The other testing can be done out patient -will start provera po at this time -I d/w treatment options but stressed until work up is complete the exact treatment will not be clear. Pt expressed understanding and all questions were addressed and answered. (2) Anemia Current Visit: Yes Status: Acute Qualifiers: Anemia type: unspecified type Qualified Code(s): D64.9 - Anemia, unspecified Plan to address problem: -s/p 1 unit of blood -pt state she does feel better (3) Headache Current Visit: Yes Status: Acute Qualifiers: Headache type: unspecified Headache chronicity pattern: acute headache Intractability: intractable Qualified Code(s): R51 - Headache Plan to address problem: -con't current recommendations as per kvng -pt states her headache has improved since the transfusion
[2019-09-01 19:46] LABS: Mean Corpuscular HGB Conc 28 % (30-34); Platelet Count 399 K/mm3 (140-440); Red Blood Count 4.17 M/mm3 (3.65-5.03)
[2019-09-01 19:52] LABS: Hematocrit 24.6 % (30.3-42.9); Mean Corpuscular Volume 59 fl (79-97); Red Cell Distribution Width 29.6 % (13.2-15.2)
[2019-09-01] MEDS: medroxyPROGESTERone ACETATE 5 MG TAB PO SCH ×2 (20:05→20:12)
[2019-09-01] MEDS: HYDROmorphone 1 MG/1 ML INJ IV PRN (20:05)
[2019-09-02] MEDS: HYDROmorphone 1 MG/1 ML INJ IV PRN (06:22)
[2019-09-02] MEDS: SODIUM CHLORIDE 0.9% 1000 ML 1,000 ML IV SCH (08:02)
[2019-09-02] MEDS ORDERED: diphenhydrAMINE 25 MG CAP PO PRN (08:25)
[2019-09-02] MEDS: OSELTAMIVIR 75 MG CAP PO SCH (09:05)
[2019-09-02] MEDS: medroxyPROGESTERone ACETATE 5 MG TAB PO SCH (09:05)
[2019-09-02] MEDS: acetaZOLAMIDE 250 MG TAB PO SCH ×2 (09:08→14:41)
[2019-09-02] MEDS ORDERED: MULTIVITAMINS,THER W-MINERALS TAB PO SCH (10:00)
[2019-09-02] MEDS ORDERED: cefTRIAXone/NS 1 GM/50 ML 1 GM/50 ML BAG IV SCH (10:00)
--- NOTE | 2019-09-02 10:05 | Discharge Summary ---
Providers - Providers Date of Admission: 09/01/19 10:10 Attending physician: JENNIFER SANTANA MD 09/01/19 12:35 Consult to Physician [CONS] Routine Comment: Consulting Provider: SARA ARELLANO Physician Instructions: Reason For Exam: WINKLER, hx of pseudotumor cerebri 09/01/19 13:42 Consult to Physician [CONS] Routine Comment: Consulting Provider: BRE RIZZO Physician Instructions: Reason For Exam: elevated wbc. fever. winkler 09/01/19 15:29 Consult to Physician [CONS] Routine Comment: Consulting Provider: XAVIER SHELL Physician Instructions: Reason For Exam: anemia, heavy period Primary care physician: [employer] Hospitalization Condition: Critical Hospital course: 39F w hx of pseudomotor cerebri who pw WINKLER and fever -she is also c/o heavy menstrual bleeding, weakness Acute on chronic blood loss anemia microcytic which supports blood loss, she is actively getting transfusion. Iron supplements. Explained to patient that she needs to be on daily iron supplements given that she is vegan. -Likely has blood loss from menorrhagia. Menorrhagia Obtain pelvic ultrasound and transvaginal ultrasound, X RAY INSPECTOR consulted Headache/fever/Sirs LP was negative, case discussed with neurologist, anemia can cause trigeminal neuralgia which can be a contributing cause of headache. He recommended carbamazepine as needed We will work-up for flu, rapid flu ordered, droplet precautions, Tamiflu until flu ruled out History of pseudomotor cerebri CT scan is negative, LP was done and opening pressure was 190. She does not have active pseudomotor cerebri at this time. No further work-up indicated DVT prophylaxis Early ambulation, avoid blood thinners given LP that was done 09/01 Disposition: DC-01 TO HOME OR SELFCARE Time spent for discharge: 33 mins Core Measure Documentation - Palliative Care Palliative Care/ Comfort Measures: Not Applicable - Core Measures Any of the following diagnoses?: none Exam - Constitutional Vitals: Temp Pulse Resp BP Pulse Ox 98.3 F 71 14 92/50 99 09/02/19 04:38 09/02/19 04:38 09/02/19 06:22 09/02/19 04:38 09/02/19 04:38 General appearance: Present: no acute distress, well-nourished - EENT Eyes: Present: PERRL ENT: hearing intact, clear oral mucosa - Neck Neck: Present: supple, normal ROM - Respiratory Respiratory effort: normal Respiratory: bilateral: CTA - Cardiovascular Heart Sounds: Present: S1 & S2. Absent: rub, click - Extremities Extremities: pulses symmetrical, No edema Peripheral Pulses: within normal limits - Abdominal General gastrointestinal: Present: soft, non-tender, non-distended, normal bowel sounds Female genitourinary: Present: normal - Integumentary Integumentary: Present: clear, warm, dry - Musculoskeletal Musculoskeletal: gait normal, strength equal bilaterally - Psychiatric Psychiatric: appropriate mood/affect, intact judgment & insight - Neurologic Neurologic: CNII-XII intact, moves all extremities Plan Follow up with: PRIMARY CARE, [Primary Care Provider] - 7 Days
[2019-09-02 10:14] LABS: Mean Corpuscular HGB Conc 27 % (30-34); Platelet Count 447 K/mm3 (140-440); Red Blood Count 3.93 M/mm3 (3.65-5.03)
[2019-09-02 10:16] LABS: Hematocrit 24.1 % (30.3-42.9); Hemoglobin 6.5 gm/dl (10.1-14.3); Mean Corpuscular Volume 61 fl (79-97); Red Cell Distribution Width 29.4 % (13.2-15.2)
[2019-09-02 10:21] LABS: BUN/Creatinine Ratio 13; Blood Urea Nitrogen 9 mg/dL (7-17); Calcium 8.4 mg/dL (8.4-10.2); Hemolysis Index 4
[2019-09-02 10:51] LABS: Basophils % (Manual) 0 % (0.0-1.8); Eosinophils % (Manual) 0 % (0.0-4.3); Total Cells Counted 100
[2019-09-02 10:53] LABS: Hypochromasia 3+
[2019-09-02 10:54] LABS: Anisocytosis 2+; Burr Cells Rare; Poikilocytosis 1+; Schistocytes Rare
[2019-09-02 10:55] LABS: Large Platelets Rare; Platelet Estimate Consistent w Auto
[2019-09-02] MEDS ORDERED: SODIUM CHLORIDE 0.9% 500 ML 500 ML IV NR (11:34)
--- NOTE | 2019-09-02 11:35 | Progress Note ---
Assessment and Plan Assessment and plan: 39F w hx of pseudomotor cerebri who pw WINKLER and fever -she is also c/o heavy menstrual bleeding, weakness Acute on chronic blood loss anemia microcytic which supports blood loss,sp 1 unit prbc, hg dropped again, will give another unit Iron supplements. Explained to patient that she needs to be on daily iron supplements given that she is vegan. -Likely has blood loss from menorrhagia. Menorrhagia Obtain pelvic ultrasound and transvaginal ultrasound, per REIMBURSEMENT SPEC, she also needs - "full work up for bleeding including pap, endometrial biopsy, and pelvic sonogram. Sono has been ordered will await results. The other testing can be done out patient -will start provera po at this time" Headache/fever/Sirs LP was negative, case discussed with neurologist, anemia can cause trigeminal neuralgia which can be a contributing cause of headache. He recommended carbamazepine as needed We will work-up for flu, rapid flu ordered, droplet precautions, Tamiflu until flu ruled out History of pseudomotor cerebri CT scan is negative, LP was done and opening pressure was 190. She does not have active pseudomotor cerebri at this time. No further work-up indicated DVT prophylaxis Early ambulation, avoid blood thinners given LP that was done 09/01 Hospitalist Physical - Constitutional Vitals: Temp Pulse Resp BP Pulse Ox 98.3 F 71 14 92/50 99 09/02/19 04:38 09/02/19 04:38 09/02/19 06:22 09/02/19 04:38 09/02/19 04:38 General appearance: Present: no acute distress, well-nourished Results - Labs CBC & Chem 7: 09/02/19 09:09 09/02/19 09:09 Labs: Laboratory Last Values WBC 25.6 K/mm3 (4.5-11.0) H 09/02/19 09:09 RBC 3.93 M/mm3 (3.65-5.03) 09/02/19 09:09 Hgb 6.5 gm/dl (10.1-14.3) L 09/02/19 09:09 Hct 24.1 % (30.3-42.9) L 09/02/19 09:09 MCV 61 fl (79-97) L 09/02/19 09:09 MCH 17 pg (28-32) L 09/02/19 09:09 MCHC 27 % (30-34) L 09/02/19 09:09 RDW 29.4 % (13.2-15.2) H 09/02/19 09:09 Plt Count 447 K/mm3 (140-440) H 09/02/19 09:09 Lymph % (Auto) Tip Mender 09/01/19 08:25 [place] % (Auto) Tip Mender 09/01/19 08:25 Eos % (Auto) Tip Mender 09/01/19 08:25 Baso % (Auto) Tip Mender 09/01/19 08:25 Lymph # Tip Mender 09/01/19 08:25 [place] # Tip Mender 09/01/19 08:25 Eos # Tip Mender 09/01/19 08:25 Baso # Tip Mender 09/01/19 08:25 Add Manual Diff Complete 09/02/19 09:09 Total Counted 100 09/02/19 09:09 Seg Neutrophils % Tip Mender 09/01/19 08:25 Seg Neuts % (Manual) 83.0 % (40.0-70.0) H 09/02/19 09:09 Band Neutrophils % 0 % 09/02/19 09:09 Lymphocytes % (Manual) 10.0 % (13.4-35.0) L 09/02/19 09:09 Reactive Lymphs % (Man) 0 % 09/02/19 09:09 Monocytes % (Manual) 7.0 % (0.0-7.3) 09/02/19 09:09 Eosinophils % (Manual) 0 % (0.0-4.3) 09/02/19 09:09 Basophils % (Manual) 0 % (0.0-1.8) 09/02/19 09:09 Metamyelocytes % 0 % 09/02/19 09:09 Myelocytes % 0 % 09/02/19 09:09 Promyelocytes % 0 % 09/02/19 09:09 Blast Cells % 0 % 09/02/19 09:09 Nucleated RBC % Not Reportable 09/02/19 09:09 Seg Neutrophils # Tip Mender 09/01/19 08:25 Seg Neutrophils # Man 21.2 K/mm3 (1.8-7.7) H 09/02/19 09:09 Band Neutrophils # 0.0 K/mm3 09/02/19 09:09 Lymphocytes # (Manual) 2.6 K/mm3 (1.2-5.4) 09/02/19 09:09 Abs React Lymphs (Man) 0.0 K/mm3 09/02/19 09:09 Monocytes # (Manual) 1.8 K/mm3 (0.0-0.8) H 09/02/19 09:09 Eosinophils # (Manual) 0.0 K/mm3 (0.0-0.4) 09/02/19 09:09 Basophils # (Manual) 0.0 K/mm3 (0.0-0.1) 09/02/19 09:09 Metamyelocytes # 0.0 K/mm3 09/02/19 09:09 Myelocytes # 0.0 K/mm3 09/02/19 09:09 Promyelocytes # 0.0 K/mm3 09/02/19 09:09 Blast Cells # 0.0 K/mm3 09/02/19 09:09 WBC Morphology Not Reportable 09/02/19 09:09 Hypersegmented Neuts Not Reportable 09/02/19 09:09 Hyposegmented Neuts Not Reportable 09/02/19 09:09 Hypogranular Neuts Not Reportable 09/02/19 09:09 Smudge Cells Not Reportable 09/02/19 09:09 Toxic Granulation Not Reportable 09/02/19 09:09 Toxic Vacuolation Not Reportable 09/02/19 09:09 Dohle Bodies Not Reportable 09/02/19 09:09 Pelger-Huet Anomaly Not Reportable 09/02/19 09:09 Bhaskar Rods Not Reportable 09/02/19 09:09 Platelet Estimate Consistent w auto 09/02/19 09:09 Clumped Platelets Not Reportable 09/02/19 09:09 Plt Clumps, EDTA Not Reportable 09/02/19 09:09 Large Platelets Rare 09/02/19 09:09 Giant Platelets Not Reportable 09/02/19 09:09 Platelet Satelliting Not Reportable 09/02/19 09:09 Plt Morphology Comment Not Reportable 09/02/19 09:09 RBC Morphology Not Reportable 09/02/19 09:09 Dimorphic RBCs Not Reportable 09/02/19 09:09 Polychromasia Not Reportable 09/02/19 09:09 Hypochromasia 3+ 09/02/19 09:09 Poikilocytosis 1+ 09/02/19 09:09 Anisocytosis 2+ 09/02/19 09:09 Microcytosis 2+ 09/02/19 09:09 Macrocytosis Not Reportable 09/02/19 09:09 Spherocytes Not Reportable 09/02/19 09:09 Pappenheimer Bodies Not Reportable 09/02/19 09:09 Sickle Cells Not Reportable 09/02/19 09:09 Target Cells Not Reportable 09/02/19 09:09 Tear Drop Cells Not Reportable 09/02/19 09:09 Ovalocytes Not Reportable 09/02/19 09:09 Helmet Cells Not Reportable 09/02/19 09:09 Estrada-[place] Bodies Not Reportable 09/02/19 09:09 [place] Rings Not Reportable 09/02/19 09:09 [place] Cells Rare 09/02/19 09:09 Bite Cells Not Reportable 09/02/19 09:09 Crenated Cell Not Reportable 09/02/19 09:09 Elliptocytes Rare 09/02/19 09:09 Acanthocytes (Spur) Not Reportable 09/02/19 09:09 Rouleaux Not Reportable 09/02/19 09:09 Hemoglobin C Crystals Not Reportable 09/02/19 09:09 Schistocytes Rare 09/02/19 09:09 Malaria parasites Not Reportable 09/02/19 09:09 ESR > 140.0 mm/Hr (0-20) 09/01/19 08:25 Navneet Bodies Not Reportable 09/02/19 09:09 Hem Pathologist Commnt No 09/02/19 09:09 Sodium 140 mmol/L (137-145) 09/02/19 09:09 Potassium 5.0 mmol/L (3.6-5.0) D 09/02/19 09:09 Chloride 109.7 mmol/L (98-107) H 09/02/19 09:09 Carbon Dioxide 14 mmol/L (22-30) L 09/02/19 09:09 Anion Gap 21 mmol/L 09/02/19 09:09 BUN 9 mg/dL (7-17) 09/02/19 09:09 Creatinine 0.7 mg/dL (0.7-1.2) 09/02/19 09:09 Estimated GFR > 60 ml/min 09/02/19 09:09 BUN/Creatinine Ratio 13 % 09/02/19 09:09 Glucose 159 mg/dL (65-100) H 09/02/19 09:09 Lactic Acid 1.60 mmol/L (0.7-2.0) 09/01/19 09:29 Calcium 8.4 mg/dL (8.4-10.2) 09/02/19 09:09 Total Bilirubin 0.50 mg/dL (0.1-1.2) 09/01/19 08:25 AST 50 units/L (5-40) H 09/01/19 08:25 ALT 22 units/L (7-56) 09/01/19 08:25 Alkaline Phosphatase 129 units/L (35-129) 09/01/19 08:25 Total Protein 9.0 g/dL (6.3-8.2) H 09/01/19 08:25 Albumin 3.6 g/dL (3.9-5) L 09/01/19 08:25 Albumin/Globulin Ratio 0.7 % 09/01/19 08:25 HCG, Qual Negative (Negative) 09/01/19 09:29 Urine Color Yellow (Yellow) 09/01/19 09:11 Urine Turbidity Slightly-cloudy (Clear) 09/01/19 09:11 Urine pH 8.0 (5.0-7.0) H 09/01/19 09:11 Ur Specific [place] 1.015 (1.003-1.030) 09/01/19 09:11 Urine Protein 100 mg/dl mg/dL (Negative) 09/01/19 09:11 Urine Glucose (UA) Neg mg/dL (Negative) 09/01/19 09:11 Urine Ketones Neg mg/dL (Negative) 09/01/19 09:11 Urine Blood Lg (Negative) 09/01/19 09:11 Urine Nitrite Neg (Negative) 09/01/19 09:11 Urine Bilirubin Neg (Negative) 09/01/19 09:11 Urine Urobilinogen 4.0 mg/dL (<2.0) 09/01/19 09:11 Ur Leukocyte Esterase Mod (Negative) 09/01/19 09:11 Urine WBC (Auto) 81.0 /HPF (0.0-6.0) H 09/01/19 09:11 Urine RBC (Auto) > 182.0 /HPF (0.0-6.0) 09/01/19 09:11 U Epithel Cells (Auto) 3.0 /HPF (0-13.0) 09/01/19 09:11 Urine Bacteria (Auto) 1+ /HPF (Negative) 09/01/19 09:11 Ur Transition Epith Cell 2 /HPF 09/01/19 09:11 Urine Mucus Few /HPF 09/01/19 09:11 CSF Appearance Clear 09/01/19 12:12 CSF Color Colorless 09/01/19 12:12 CSF WBC 3 /mm3 (1-10) 09/01/19 12:12 CSF RBC 0 /mm3 (0-0) 09/01/19 12:12 CSF Seg Neutrophils Not Reportable 09/01/19 12:12 CSF Lymphocytes % 50.0 % (40-80) 09/01/19 12:12 CSF Reactive Lymphs Not Reportable 09/01/19 12:12 CSF Monocytes % 50.0 % (15-45) 09/01/19 12:12 CSF Eosinophils % Not Reportable 09/01/19 12:12 CSF Basophils Not Reportable 09/01/19 12:12 CSF Pathologist Review C 09/01/19 12:12 CSF Glucose 71 mg/dL 09/01/19 12:12 CSF Total Protein 15 mg/dL 09/01/19 12:12 Influenza A (Rapid) Negative (Negative) 09/01/19 18:00 Influenza B (Rapid) Negative (Negative) 09/01/19 18:00 Blood Type A POSITIVE 09/01/19 10:15 Antibody Screen Negative 09/01/19 10:15 Crossmatch See Detail 09/01/19 10:15 Active Medications - Current Medications Current Medications: Generic Name Dose Route Start Last Admin Trade Name Freq PRN Reason Stop Dose Admin Acetaminophen 650 mg 09/01/19 12:35 Tylenol PO Q4H PRN Pain MILD(1-3)/Fever >100.5/WINKLER Acetaminophen/Hydrocodone Bitart 2 each 09/01/19 12:35 [place] 5/325 PO Q6H PRN Pain, Moderate (4-6) Acetazolamide 250 mg 09/01/19 14:00 09/02/19 09:08 Diamox PO 250 mg TID JAIME Administration Carbamazepine 100 mg 09/01/19 16:01 Tegretol PO BID PRN Headache Cyclobenzaprine HCl 5 mg 09/01/19 16:01 Flexeril PO Q8H PRN Muscle Spasm Diphenhydramine HCl 25 mg 09/02/19 08:25 09/02/19 09:05 Benadryl PO 25 mg Q6H PRN Administration Itching Sodium Chloride 1,000 mls @ 125 mls/hr 09/01/19 13:00 09/02/19 08:02 Nacl 0.9% 1000 Ml IV 125 mls/hr DIRECT JAIME Administration Sodium Chloride 500 mls @ 0 mls/hr 09/02/19 11:34 Nacl 0.9% 500 Ml IV 09/02/19 11:35 ONCE ONE As Directed Medroxyprogesterone Acetate 10 mg 09/01/19 19:00 09/02/19 09:05 Provera PO Not Given QDAY JAIME Multivitamins/Minerals 1 each 09/02/19 10:00 09/02/19 09:05 Theragran-M Tab PO 1 each QDAY JAIME Administration Ondansetron HCl 4 mg 09/01/19 12:35 Zofran IV Q8H PRN Nausea And Vomiting Oseltamivir Phosphate 75 mg 09/01/19 16:00 09/02/19 09:05 Tamiflu PO 09/05/19 22:01 75 mg BID JAIME Administration Sodium Chloride 10 ml 09/01/19 22:00 09/02/19 09:06 Sodium Chloride Flush Syringe 10 Ml IV 10 ml BID JAIME Administration Sodium Chloride 10 ml 09/01/19 12:35 Sodium Chloride Flush Syringe 10 Ml IV PRN PRN LINE FLUSH
[2019-09-02] MEDS ORDERED: FLU VACC QUAD 2019-20 (3 YR UP)/PF 60 MCG/0.5 ML SYRINGE IM ONE (12:00)
--- NOTE | 2019-09-02 12:13 | Ultrasound Report ---
Pelvic ultrasound complete INDICATION: Heavy bleeding, pelvic pain Transabdominal and transvaginal imaging is performed. FINDINGS: The uterus measures 7.5 cm in length. The uterus is somewhat heterogeneous in echotexture. The endome trial stripe measures 7 mm. The right ovary measures 3.5 cm the left ovary measures 2.8 cm. There is a 1.5 cm nodule arising from the left ovary. There is no free fluid. IMPRESSION: 1.5 cm nodule arising from the left ovary. This likely represents a hemorrhagic cyst, bu t this could be a solid ovarian lesion.. Follow-up ultrasound in 6-8 weeks a different phase of patie nt's menstrual cycle is suggested to ensure that this resolves. Signer Name: Nathan Pinedo MD Signed: 09/02/2019 12:09 PM Workstation Name: [id number]
--- NOTE | 2019-09-02 12:49 | Consultation ---
History of Present Illness - Reason for Consult Consult date: 09/02/19 Fever, headache, elevated WBC Requesting physician: GHAZALA MEDINA III - History of Present Illness The patient is a 29-year-old female with h/o pseudotumor cerebi, used to be in [place], moved to [place] about 2 years ago came into the emergency room yesterday with complaints of fever and headaches going on for about a week prior to admission starting Friday. She had a fever over the weekend up to 103F along with bodyaches thinking she had the flu. Then developed a severe headache and hence came here. Due to concern for meningitis, she underwent an LP in the ER which showed normal glucose and protein and no pleocytosis, opening pressure was on the higher side at 19 cm of water. Following the LP, she states her headaches have resolved. She has also been having heavy menstrual bleeding for which OB-HEARING STENOGRAPHER was consulted. She underwent a pelvic and transvaginal ultrasound which showed a left ovarian nodule versus hemorrhagic cyst. Currently, feeling better, just tired. Also mild pain at the LP site. No h/o STDs, not sexually active for 3+ years. Denies any vaginal drainage prior to admission. Denies any urinary burning. Review of Systems: General: + fever, now improved HEENT: no new visual disturbance Respiratory: No cough, sputum, hemoptysis or shortness of breath Cardiovascular: No chest pain, syncope Gastrointestinal: No nausea, vomiting or diarrhea Genitourinary: No dysuria or hematuria Musculoskeletal: No new or worsening neck pain or back pain Neurologic: + headaches now improved, seizures Hematologic: No easy bruising or bleeding Endocrine: No night sweats or acute weight loss Skin: negative for rash, jaundice Psychiatric: No suicidal or homicidal ideation Past History Past Medical History: No medical history Past Surgical History: Other (underarm lipoma removed as child) Social history: no significant social history Family history: other (paternal aunt has breast ca, sister has anemia) Medications and Allergies Allergies Allergy/AdvReac Type Severity Reaction Status Date / Time No Known Allergies Allergy Unverified 07/06/17 10:41 Home Medications Medication Instructions Recorded Confirmed Last Taken Type No Known Home Medications [No 09/01/19 09/01/19 Unknown History Reported Home Medications] Active Meds: Active Medications Acetaminophen (Tylenol) 650 mg PO Q4H PRN PRN Reason: Pain MILD(1-3)/Fever >100.5/WINKLER Acetaminophen/Hydrocodone Bitart ([place] 5/325) 2 each PO Q6H PRN PRN Reason: Pain, Moderate (4-6) Acetazolamide (Diamox) 250 mg PO TID [facility] Last Admin: 09/02/19 09:08 Dose: 250 mg Documented by: Carbamazepine (Tegretol) 100 mg PO BID PRN PRN Reason: Headache Cyclobenzaprine HCl (Flexeril) 5 mg PO Q8H PRN PRN Reason: Muscle Spasm Diphenhydramine HCl (Benadryl) 25 mg PO Q6H PRN PRN Reason: Itching Last Admin: 09/02/19 09:05 Dose: 25 mg Documented by: Sodium Chloride (Nacl 0.9% 1000 Ml) 1,000 mls @ 125 mls/hr IV DIRECT [facility] Last Admin: 09/02/19 08:02 Dose: 125 mls/hr Documented by: Sodium Chloride (Nacl 0.9% 500 Ml) 500 mls @ 0 mls/hr IV ONCE NR Stop: 09/02/19 23:59 Medroxyprogesterone Acetate (Provera) 10 mg PO QDAY [facility] Last Admin: 09/02/19 09:05 Dose: Not Given Documented by: Multivitamins/Minerals (Theragran-M Tab) 1 each PO QDAY [facility] Last Admin: 09/02/19 09:05 Dose: 1 each Documented by: Ondansetron HCl (Zofran) 4 mg IV Q8H PRN PRN Reason: Nausea And Vomiting Oseltamivir Phosphate (Tamiflu) 75 mg PO BID [facility] Stop: 09/05/19 22:01 Last Admin: 09/02/19 09:05 Dose: 75 mg Documented by: Sodium Chloride (Sodium Chloride Flush Syringe 10 Ml) 10 ml IV BID [facility] Last Admin: 09/02/19 09:06 Dose: 10 ml Documented by: Sodium Chloride (Sodium Chloride Flush Syringe 10 Ml) 10 ml IV PRN PRN PRN Reason: LINE FLUSH Physical Examination - Physical Exam Narrative exam: Physical Exam: Constitutional: Alert, cooperative. No acute distress Head, Ears, Nose: Normocephalic, atraumatic. External ears, nose normal Eyes: Conjunctivae/corneas clear. No icterus. No ptosis. Neck: Supple, no meningeal signs Oral: dentition fair, no thrush Cardiovascular: S1, S2 normal. Respiratory: Good air entry, clear to auscultation bilaterally GI: Soft, non-tender; bowel sounds normal. No peritoneal signs Musculoskeletal: No pedal edema, no cyanosis. Skin: No rash or abscess Hem/Lymphatic: No palpable cervical or supraclavicular nodes. No lymphangitis Psych: Mood ok. Affect normal Neurological: Awake, alert, oriented. No gross abnormality - Constitutional Vitals: Vital Signs Temp Pulse Resp BP Pulse Ox 98.2 F 71 20 105/65 100 09/02/19 12:00 09/02/19 12:00 09/02/19 12:00 09/02/19 12:00 09/02/19 12:00 Temperature -Last 24 Hours Temperature 98.2 F Temperature 98.3 F Temperature 98.3 F Temperature 98.6 F Temperature 99.4 F Temperature 99.0 F Temperature 98.4 F Temperature 98.4 F Results - Labs CBC & Chem 7: 09/02/19 09:09 09/02/19 09:09 Labs: Abnormal lab results 09/01/19 09/01/19 09/02/19 Range/Units 10:15 19:33 09:09 WBC 15.5 H 25.6 H (4.5-11.0) K/mm3 Hgb 7.0 L 6.5 L (10.1-14.3) gm/dl Hct 24.6 L 24.1 L (30.3-42.9) % MCV 59 L 61 L (79-97) fl MCH 17 L 17 L (28-32) pg MCHC 28 L 27 L (30-34) % RDW 29.6 H 29.4 H (13.2-15.2) % Plt Count 447 H (140-440) K/mm3 Seg Neuts % (Manual) 83.0 H (40.0-70.0) % Lymphocytes % (Manual) 10.0 L (13.4-35.0) % Seg Neutrophils # Man 21.2 H (1.8-7.7) K/mm3 Monocytes # (Manual) 1.8 H (0.0-0.8) K/mm3 Chloride (98-107) mmol/L Carbon Dioxide (22-30) mmol/L Glucose (65-100) mg/dL Crossmatch See Detail 09/02/19 Range/Units 09:09 WBC (4.5-11.0) K/mm3 Hgb (10.1-14.3) gm/dl Hct (30.3-42.9) % MCV (79-97) fl MCH (28-32) pg MCHC (30-34) % RDW (13.2-15.2) % Plt Count (140-440) K/mm3 Seg Neuts % (Manual) (40.0-70.0) % Lymphocytes % (Manual) (13.4-35.0) % Seg Neutrophils # Man (1.8-7.7) K/mm3 Monocytes # (Manual) (0.0-0.8) K/mm3 Chloride 109.7 H (98-107) mmol/L Carbon Dioxide 14 L (22-30) mmol/L Glucose 159 H (65-100) mg/dL Crossmatch - Imaging and Cardiology CT Scan - head: report reviewed, image reviewed (no acute findings) Assessment and Plan Cultures: 09/01/2019 urine culture: Skin brando 09/01/2019 blood culture: No growth 09/01/2019 CSF culture: In process 09/01/2019 influenza rapid screen: Negative A/P: 29-year-old female with no significant past medical history other than pseudotumor cerebri came in with fever and headaches: #Fever, leucocytosis: ?viral infection. WBC could be reactive from the anemia. #Anemia, likely blood loss from menorrhagia: seen by OB-HEARING STENOGRAPHER, planned for outpatient follow up. No concern for infectious process seen on pelvic and transvaginal US. d/W Dr. Wade. #Headache: meningitis unlikely based on CSF studies. Opening pressure was on the higher side. Headache resolved post LP. Recs: worsening WBC today could be from the dose of steroids yesterday Influenza screen negative, PCR ordered monitor off antibiotics for now if influenza PCR is negative, would d/c tamiflu Benedict Garrison MD, FACP [facility] ([facility] C: [phone] O: [phone] F: [phone]
--- NOTE | 2019-09-02 13:54 | Progress Note ---
Assessment and Plan - Patient Problems (1) Menorrhagia with regular cycle Current Visit: Yes Status: Acute Plan to address problem: US report reviewed and discussed with patient Will start provera daily (2) Anemia Current Visit: Yes Status: Acute Qualifiers: Anemia type: unspecified type Qualified Code(s): D64.9 - Anemia, un specified Plan to address problem: She will receive another unit of PBRCs Subjective - Subjective Date of service: 09/02/19 Principal diagnosis: Menorrhagia, anemia Interval history: Resting in bed. States she's currently on her period, bleeding is heavy not unusual of her. States menorrhagia started ~2004 and was d/t Mirena that was placed 2001 after her delivery. The Mirena was removed however menorrhagia continued. She has not had a workup for this menorrhagia and she has never had a blood transfusion. Patient reports: appetite normal, voiding normally, pain well controlled (WINKLER much better) Objective - Vital Signs Latest vital signs: Vital Signs Temp Pulse Resp BP Pulse Ox 09/02/19 12:52 98.2 F 16 09/02/19 12:50 75 16 109/69 100 09/02/19 12:00 98.2 F 71 20 105/65 100 09/02/19 06:22 14 09/02/19 04:38 98.3 F 71 18 92/50 99 09/01/19 22:00 18 100 09/01/19 21:49 98.3 F 86 18 123/64 100 09/01/19 20:05 14 09/01/19 17:29 98.6 F 97 H 20 115/69 99 09/01/19 16:00 18 99 09/01/19 14:44 94 H 117/69 99 09/01/19 14:23 99.4 F 94 H 18 117/69 99 09/01/19 13:53 99.0 F 109 H 16 118/75 100 Intake and Output 09/01/19 09/02/19 09/02/19 22:59 06:59 14:59 Intake Total 250 2600 0 Balance 250 2600 0 Intake: IV 1000 NaCl 0.9% 1000 ml 1,000 1000 ml @ 125 mls/hr IV DIRECT JAIME Rx#:[id number] Oral 1600 Blood Product 250 0 Leukoreduced Red Blood 250 Cells Unit [id number] Leukoreduced Red Blood 0 Cells Unit [id number] Other: Total, Intake Amount 700 Voiding Method Toilet Weight 81.647 kg 175 kg - Exam Abdomen: Present: normal appearance, soft Vulva: both: normal Uterus: Present: fundal height below umbilicus (small). Absent: tenderness (cervix palpated normal, no masses palpated, small amount of blood on glove) Extremities: Present: normal - Labs Labs: Abnormal lab results 09/01/19 09/01/19 09/02/19 Range/Units 10:15 19:33 09:09 WBC 15.5 H 25.6 H (4.5-11.0) K/mm3 Hgb 7.0 L 6.5 L (10.1-14.3) gm/dl Hct 24.6 L 24.1 L (30.3-42.9) % MCV 59 L 61 L (79-97) fl MCH 17 L 17 L (28-32) pg MCHC 28 L 27 L (30-34) % RDW 29.6 H 29.4 H (13.2-15.2) % Plt Count 447 H (140-440) K/mm3 Seg Neuts % (Manual) 83.0 H (40.0-70.0) % Lymphocytes % (Manual) 10.0 L (13.4-35.0) % Seg Neutrophils # Man 21.2 H (1.8-7.7) K/mm3 Monocytes # (Manual) 1.8 H (0.0-0.8) K/mm3 Chloride (98-107) mmol/L Carbon Dioxide (22-30) mmol/L Glucose (65-100) mg/dL Crossmatch See Detail 09/02/19 Range/Units 09:09 WBC (4.5-11.0) K/mm3 Hgb (10.1-14.3) gm/dl Hct (30.3-42.9) % MCV (79-97) fl MCH (28-32) pg MCHC (30-34) % RDW (13.2-15.2) % Plt Count (140-440) K/mm3 Seg Neuts % (Manual) (40.0-70.0) % Lymphocytes % (Manual) (13.4-35.0) % Seg Neutrophils # Man (1.8-7.7) K/mm3 Monocytes # (Manual) (0.0-0.8) K/mm3 Chloride 109.7 H (98-107) mmol/L Carbon Dioxide 14 L (22-30) mmol/L Glucose 159 H (65-100) mg/dL Crossmatch
[2019-09-02 17:05] VITALS: BP 105/55
--- NOTE | 2019-09-02 17:12 | Discharge Summary ---
Providers - Providers Date of Admission: 09/01/19 10:10 Attending physician: JENNIFER SATNANA MD 09/01/19 12:35 Consult to Physician [CONS] Routine Comment: Consulting Provider: SARA ARELLANO Physician Instructions: Reason For Exam: WINKLER, hx of pseudotumor cerebri 09/01/19 13:42 Consult to Physician [CONS] Routine Comment: Consulting Provider: BRE RIZZO Physician Instructions: Reason For Exam: elevated wbc. fever. winkler 09/01/19 15:29 Consult to Physician [CONS] Routine Comment: Consulting Provider: XAVIER SHELL Physician Instructions: Reason For Exam: anemia, heavy period Primary care physician: [facility] [employer] Hospitalization Condition: Critical Hospital course: 39F w hx of pseudomotor cerebri who pw WINKLER and fever -she is also c/o heavy menstrual bleeding, weakness Acute on chronic blood loss anemia Received 2 units of blood and iron supplements -Likely has blood loss from menorrhagia. 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 Sono has been ordered will await results. The other testing can be done out patient -will start provera po at this time" After Provera was started, bleeding stopped and patient improved Headache/fever/Sirs LP was negative, case discussed with neurologist, anemia can cause trigeminal neuralgia which can be a contributing cause of headache. He recommended carbamazepine as needed Influenza test was negative History of pseudomotor cerebri CT scan is negative, LP was done and opening pressure was 190. She does not have active pseudomotor cerebri at this time. No further work-up indicated DVT prophylaxis Early ambulation, avoid blood thinners given LP that was done 09/01 Disposition: DC-01 TO HOME OR SELFCARE Time spent for discharge: 33 mins Core Measure Documentation - Palliative Care Palliative Care/ Comfort Measures: Not Applicable - Core Measures Any of the following diagnoses?: none Exam - Constitutional Vitals: Temp Pulse Resp BP Pulse Ox 99 F 74 16 105/55 100 09/02/19 17:04 09/02/19 17:04 09/02/19 17:04 09/02/19 17:04 09/02/19 12:50 General appearance: Present: no acute distress, well-nourished - EENT Eyes: Present: PERRL ENT: hearing intact, clear oral mucosa - Neck Neck: Present: supple, normal ROM - Respiratory Respiratory effort: normal Respiratory: bilateral: CTA - Cardiovascular Heart Sounds: Present: S1 & S2. Absent: rub, click - Extremities Extremities: pulses symmetrical, No edema Peripheral Pulses: within normal limits - Abdominal General gastrointestinal: Present: soft, non-tender, non-distended, normal bowel sounds Female genitourinary: Present: normal - Integumentary Integumentary: Present: clear, warm, dry - Musculoskeletal Musculoskeletal: gait normal, strength equal bilaterally - Psychiatric Psychiatric: appropriate mood/affect, intact judgment & insight - Neurologic Neurologic: CNII-XII intact, moves all extremities Plan Follow up with: PRIMARY CARE,MD [Primary Care Provider] - 7 Days Prescriptions: Cyclobenzaprine [Flexeril 10 MG TAB] 5 mg PO Q8H PRN #20 tablet PRN Reason: Muscle Spasm Ibuprofen [Motrin] 600 mg PO Q8H PRN #30 tablet PRN Reason: Pain Multivitamin Tab W-MINERAL [Multiple Vitamin/Mineral (Theragran M)] 1 each PO QDAY #30 tablet medroxyPROGESTERone ACETATE [Provera] 10 mg PO QDAY #30 tablet
[2019-09-02] MEDS ORDERED: KETOROLAC 30 MG/1 ML INJ IV ONE (17:16)
--- NOTE | 2019-09-02 17:49 | Progress Note ---
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 GETTING TRANSFUSION.HEMOGLOBIN LEVEL IS UP FROM BASE LINE. COMPLAINS OF BACK PAIN AT THE SITE OF LUMBAR PUNCTURE, DENIES ANY RADICULAR NATURE. WBSC CONTINUES TO BE HIGH FROM UTI. CURRENTLY SHE IS GETTING ANTIBIOTICS, DID NOT NEED CARBAMAZEPINE OR FLEXERIL YET. PHYSICAL EXAMINATION- GENERAL- IN NO ACUTE DISTRESS.ALERT AND APPROPRIATE.ANSWERS QUESTIONS SMILINGLY. HEART-NORMAL RATE AND RHYTHM CAROTIDS-BOTH PALPABLE, CRANIAL NEREVS-ALL WITH IN NORMAL LIMIT MOTOR- POINT TENDERNESS AT THE SITE OF LP,NO TENDERNESS ON LUMBAR PARASPINAL MUSCLES. REFLEXES-WITH IN NORMAL LIMIT. IMPRESSION. 1. SYMPTOMS OF TRIGEMINAL NEURALGIA AND TENSION TYPE HEADACHE BEING EXACERBATED BY SEVERE ANEMIA WITH SIGNIFICANT IMPROVEMENT ON BLOOD TRANSFUSION RECOMMEND 1. CONTINUE BLOOD TRANSFUSION TO IMPROVE HEMOGLOBIN FURTHER UP 2. NOTHING ADDITIONAL TO OFFER FROM NEURO STAND POINT 3. WILL SIGN OFF,PLEASE CALL IF NEW PROBLEM Subjective Principal diagnosis: Menorrhagia, anemia Objective - Vital Sign Vital Signs - 12hr 09/02/19 09/02/19 09/02/19 06:22 12:00 12:49 Temperature 98.2 F Pulse Rate 71 74 Respiratory 14 20 Rate Blood Pressure 105/65 109/69 Blood Pressure [Left] O2 Sat by Pulse 100 100 Oximetry 09/02/19 09/02/19 09/02/19 12:50 12:52 13:45 Temperature 98.2 F 98.3 F Pulse Rate 75 76 Respiratory 16 16 16 Rate Blood Pressure 109/69 Blood Pressure 107/80 [Left] O2 Sat by Pulse 100 Oximetry 09/02/19 09/02/19 09/02/19 14:15 14:30 17:04 Temperature 98.4 F 99 F Pulse Rate 75 75 74 Respiratory 16 16 16 Rate Blood Pressure Blood Pressure 115/79 106/77 105/55 [Left] O2 Sat by Pulse Oximetry - Laboratory Findings CBC and BMP: 09/02/19 09:09 09/02/19 09:09 Abnormal Lab Findings: Abnormal Labs 09/01/19 09/01/19 09/01/19 08:25 08:25 09:11 WBC 18.9 H Hgb 6.0 L Hct 22.6 L MCV 54 L MCH 14 L MCHC 27 L RDW 26.0 H Plt Count Seg Neuts % (Manual) 77.0 H Lymphocytes % (Manual) 13.0 L Monocytes % (Manual) 8.0 H Seg Neutrophils # Man 14.6 H Monocytes # (Manual) 1.5 H Basophils # (Manual) 0.2 H Sodium 136 L Chloride Carbon Dioxide 19 L Glucose 101 H AST 50 H Total Protein 9.0 H Albumin 3.6 L Urine pH 8.0 H Urine WBC (Auto) 81.0 H Crossmatch 09/01/19 09/01/19 09/02/19 10:15 19:33 09:09 WBC 15.5 H 25.6 H Hgb 7.0 L 6.5 L Hct 24.6 L 24.1 L MCV 59 L 61 L MCH 17 L 17 L MCHC 28 L 27 L RDW 29.6 H 29.4 H Plt Count 447 H Seg Neuts % (Manual) 83.0 H Lymphocytes % (Manual) 10.0 L Monocytes % (Manual) Seg Neutrophils # Man 21.2 H Monocytes # (Manual) 1.8 H Basophils # (Manual) Sodium Chloride Carbon Dioxide Glucose AST Total Protein Albumin Urine pH Urine WBC (Auto) Crossmatch See Detail 09/02/19 09:09 WBC Hgb Hct MCV MCH MCHC RDW Plt Count Seg Neuts % (Manual) Lymphocytes % (Manual) Monocytes % (Manual) Seg Neutrophils # Man Monocytes # (Manual) Basophils # (Manual) Sodium Chloride 109.7 H Carbon Dioxide 14 L Glucose 159 H AST Total Protein Albumin Urine pH Urine WBC (Auto) Crossmatch
== END 2019-09-02 20:39 | disposition home or self-care (01) | DRG 73 ==
LOC: ED 07:32 → 3A 10:10
PROVIDERS: ADMIT Internal Medicine; ATTEND Internal Medicine
PROC: 009U3ZX Drainage of Spinal Canal, Percutaneous Approach, Diagnostic (ICD-10-PCS; principal; 2019-09-01)
PROC: B01B1ZZ Fluoroscopy of Spinal Cord using Low Osmolar Contrast (ICD-10-PCS; 2019-09-01)
PROC: 30233N1 Transfusion of Nonautologous Red Blood Cells into Peripheral Vein, Percutaneous Approach (ICD-10-PCS; 2019-09-01)
DX: G50.0 Trigeminal neuralgia (principal); G03.9 Meningitis, unspecified; D62 Acute posthemorrhagic anemia; R65.10 Systemic inflammatory response syndrome (SIRS) of non-infectious origin without acute organ dysfunction; N30.01 Acute cystitis with hematuria; G44.209 Tension-type headache, unspecified, not intractable; N92.0 Excessive and frequent menstruation with regular cycle; D72.829 Elevated white blood cell count, unspecified
CPT/HCPCS: 36415; 36430; 62270; 70450; 76830; 76856; 77003; 80048; 80053; 81001; 82140; 82947; 84160; 84703; 85007; 85025; 85027; 85652; 86592; 86850; 86900; 86901; 86920; 87040; 87086; 87116; 87400; 89051; 90686; 99292; G0378; 87502; J0133; J0692; J0696; J1170; J1200; J1885; J2405; J2930; J7030; J7040; J7050; P9016

== ENCOUNTER 2020-05-20 10:42 | Emergency (ER) | payer SELFPAY ==
[2020-05-20 10:49] VITALS: BP 119/64
--- NOTE | 2020-05-20 11:52 | Emergency Department Report ---
Chief Complaint: Laceration/Recheck/Suture Stated Complaint: REMOVE STITCHES Time Seen by Provider: 05/20/20 11:26 - HPI History of Present Illness: pt is a 39 yo female who presents to the ED with c/o suture removal. she just had the sutures placed on 05/14/2020 to the right forearm. she denies any drainage, fever, increased pain, chills, vomiting. she states that she was cut by a glass measuring cup. she states she was given a tdap on exam: there is a healing laceration present to the right forearm, it does not yet appear to be completely healed, no drainage, no erythema, no increased warmth, no signs of infection, neurovasculalry intact it does not appear the sutures are ready to be removed sutures on the extremities typically take 10-14 days I advised pt please continue to keep clean, dry, covered. may wash with antibacterial soap and water and immediately dry. no hot tub, no pool, no soaking in water. your sutures need more time, please wait 5-6 days for suture removal which would be 8/ or 87. may return to the emergency room for removal or be seen at the clinic below. return to the emergency room for any new or worsening symptoms or any signs of infection. medical screening examination performed and there is no threat to life or limb at this time - Exam Vital Signs: Vital Signs 05/20/20 10:47 Temperature 99.6 F Pulse Rate 99 H Respiratory 20 Rate Blood Pressure 119/64 MSE screening note: Focused history and physical exam performed. ED Disposition for MSE Clinical Impression: Visit for wound check Disposition: MED SCREENING EXAM-LEFT Is pt being admited?: No Does the pt Need Aspirin: No Condition: Stable Instructions: Acute Wound Care (ED) Additional Instructions: please continue to keep clean, dry, covered. may wash with antibacterial soap and water and immediately dry. no hot tub, no pool, no soaking in water. your sutures need more time, please wait 5-6 days for suture removal which would be 8/6 or 8/7. may return to the emergency room for removal or be seen at the clinic below. return to the emergency room for any new or worsening symptoms or any sign s of infection. [facility] Address: [address] [place] [id number] Referrals: PRIMARY CARE, [Primary Care Provider] - 3-5 Days Time of Disposition: 11:50 Print Language: QATARI
== END 2020-05-20 12:10 | disposition left against medical advice (07) ==
LOC: ED 10:42
DX: Z48.00 Encounter for change or removal of nonsurgical wound dressing (principal); Z53.21 Procedure and treatment not carried out due to patient leaving prior to being seen by health care provider

== ENCOUNTER 2021-04-11 12:47 | Observation (INO) | payer OTHER ==
[2021-04-11 15:06] LABS: Hemoglobin 6.2 gm/dl (10.1-14.3); Mean Corpuscular HGB Conc 27 % (30-34); Mean Corpuscular Volume 54 fl (79-97); Platelet Count 457 K/mm3 (140-440); Red Blood Count 4.27 M/mm3 (3.65-5.03); Red Cell Distribution Width 23.2 % (13.2-15.2)
--- NOTE | 2021-04-11 15:15 | XRay Report ---
CHEST 2 VIEWS INDICATION / CLINICAL INFORMATION: chest pain. COMPARISON: None available. FINDINGS: SUPPORT DEVICES: None. HEART / MEDIASTINUM: No significant abnormality. LUNGS / PLEURA: No significant pulmonary or pleural abnormality. No pneumothorax. ADDITIONAL FINDINGS: No significant additional findings. IMPRESSION: 1. No acute findings. Signer Name: Pedro Rivas MD Signed: 04/11/2021 3:10 PM Workstation Name: [id number]
[2021-04-11 15:26] LABS: Albumin 4.1 g/dL (3.9-5); Blood Urea Nitrogen 6 mg/dL (7-17); Calcium 8.5 mg/dL (8.4-10.2); Hemolysis Index 2
[2021-04-11 15:30] LABS: Alanine Aminotransferase < 5 units/L (7-56); BUN/Creatinine Ratio 10
[2021-04-11 16:50] LABS: Bacteria,Urine 1+ /HPF (Negative); Bilirubin,Urine NEG (Negative); Blood,Urine NEG (Negative); Color,Urine Colorless (Yellow); Protein,Urine <15 mg/dL mg/dL (Negative); Urobilinogen,Urine < 2.0 mg/dL (<2.0)
[2021-04-11] MEDS ORDERED: SODIUM CHLORIDE 0.9% 500 ML 500 ML IV ONE (20:33)
--- NOTE | 2021-04-11 20:35 | Emergency Department Report ---
ED General Adult HPI - General Chief complaint: Weakness Stated complaint: FATIGUE PUI?: No Time Seen by Provider: 04/11/21 20:10 Source: patient Mode of arrival: Ambulatory Limitations: No Limitations - History of Present Illness Initial comments: Patient is a 40-year-old female that presents emergency room with complaints of shortness of breath, weakness and fatigue. Patient states her symptoms Are worsening. Patient has a history of anemia. Patient states she is not taking any iron supplement. Patient states does not take any vitamins. Patient states she just got off her period last week. Patient states that it feels better with rest and worse with movement. Patient denies recent travel. Patient denies recent international travel. Patient denies exposure to the novel coronavirus. Patient denies sick contacts. Patient denies fever and chills. Patient denies cough. Patient denies diarrhea. Patient denies coming in contact with anybody with symptoms of the novel coronavirus. -: Sudden Consistency: constant Improves with: rest Worsens with: movement Associated Symptoms: malaise, shortness of breath, weakness. denies: confusion, chest pain, cough, diaphoresis, fever/chills, nausea/vomiting, rash, seizure, syncope - Related Data Previous Rx's Medication Instructions Recorded Last Taken Type Cyclobenzaprine [Flexeril 10 MG 5 mg PO Q8H PRN #20 tablet 09/02/19 Unknown Rx TAB] Ibuprofen [Motrin] 600 mg PO Q8H PRN #30 tablet 09/02/19 Unknown Rx Multivitamin Tab W-MINERAL 1 each PO QDAY #30 tablet 09/02/19 Unknown Rx [Multiple Vitamin/Mineral (Theragran M)] medroxyPROGESTERone ACETATE 10 mg PO QDAY #30 tablet 09/02/19 Unknown Rx [Provera] Allergies Allergy/AdvReac Type Severity Reaction Status Date / Time No Known Allergies Allergy Verified 05/25/20 18:05 ED Review of Systems ROS: Stated complaint: FATIGUE Other details as noted in HPI Constitutional: malaise, weakness. denies: chills, fever Eyes: denies: eye pain, eye discharge, vision change ENT: denies: ear pain, throat pain Respiratory: shortness of breath. denies: cough, wheezing Cardiovascular: denies: chest pain, palpitations Endocrine: no symptoms reported Gastrointestinal: denies: abdominal pain, nausea, diarrhea Genitourinary: denies: urgency, dysuria, discharge Musculoskeletal: denies: back pain, joint swelling, arthralgia Skin: denies: rash, lesions Neurological: as per HPI, weakness. denies: headache, paresthesias Psychiatric: denies: anxiety, depression Hematological/Lymphatic: denies: easy bleeding, easy bruising ED Past Medical Hx - Past Medical History Previous Medical History?: Yes Hx Congestive Heart Failure: No Hx Diabetes: Yes (Mother) Hx Asthma: No Hx COPD: No Hx HIV: No Additional medical history: Pseudotumor Cerebri (diag in 2002). No longer being treated for contidion. Anemia - Surgical History Past Surgical History?: Yes Additional Surgical History: 2009 - Family History Family history: no significant - Social History Smoking Status: Former Smoker Substance Use Type: None - Medications Home Medications: Home Medications Medication Instructions Recorded Confirmed Last Taken Type Cyclobenzaprine [Flexeril 10 MG 5 mg PO Q8H PRN #20 tablet 09/02/19 Unknown Rx TAB] Ibuprofen [Motrin] 600 mg PO Q8H PRN #30 tablet 09/02/19 Unknown Rx Multivitamin Tab W-MINERAL 1 each PO QDAY #30 tablet 09/02/19 Unknown Rx [Multiple Vitamin/Mineral (Theragran M)] medroxyPROGESTERone ACETATE 10 mg PO QDAY #30 tablet 09/02/19 Unknown Rx [Provera] ED Physical Exam - General Limitations: No Limitations General appearance: alert, in no apparent distress - Head Head exam: Present: atraumatic, normocephalic - Eye Eye exam: Present: normal appearance - ENT ENT exam: Present: mucous membranes moist - Neck Neck exam: Present: normal inspection - Respiratory Respiratory exam: Present: normal lung sounds bilaterally. Absent: respiratory distress - Cardiovascular Cardiovascular Exam: Present: regular rate, normal rhythm. Absent: systolic murmur, diastolic murmur, rubs, gallop - GI/Abdominal GI/Abdominal exam: Present: soft, normal bowel sounds - Extremities Exam Extremities exam: Present: normal inspection - Back Exam Back exam: Present: normal inspection - Neurological Exam Neurological exam: Present: alert, oriented X3 - Psychiatric Psychiatric exam: Present: normal affect, normal mood - Skin Skin exam: Present: warm, dry, intact, normal color. Absent: rash ED Course Vital Signs 04/11/21 04/11/21 13:51 20:57 Temperature 99.4 F Pulse Rate 96 H 89 Respiratory 20 16 Rate Blood Pressure 141/90 Blood Pressure 122/79 [Left] O2 Sat by Pulse 99 98 Oximetry - Reevaluation(s) Reevaluation #1: I discussed all results with patient. I discussed plan of care with patient. Patient agrees with plan of care and admission. Patient to be admitted to the hospitalist service. Patient agrees to transfusion. 04/11/21 20:50 - Consultations Consultation #1: Hospitalist consulted for admission. Hospitalist to admit patient. 04/11/21 20:52 ED Medical Decision Making - Lab Data Result diagrams: 04/11/21 14:49 04/11/21 14:49 - EKG Data -: EKG Interpreted by Me EKG shows normal: sinus rhythm, axis, intervals, QRS complexes, ST-T waves Rate: normal - Radiology Data Radiology results: report reviewed, image reviewed interpreted by me: Chest x-ray: No pneumonia, no pneumothorax, no foreign body, no osseous findings, no acute findings CHEST 2 VIEWS INDICATION / CLINICAL INFORMATION: chest pain. COMPARISON: None available. FINDINGS: SUPPORT DEVICES: None. HEART / MEDIASTINUM: No significant abnormality. LUNGS / PLEURA: No significant pulmonary or pleural abnormality. No pneumothorax. ADDITIONAL FINDINGS: No significant additional findings. IMPRESSION: 1. No acute findings. - Medical Decision Making Patient is a 40-year-old female that presents emergency room with complaints of weakness, shortness of breath and fatigue. Patient symptoms are secondary to severe anemia. Patient has heavy menstrual periods and is not currently taking any type of vitamins or iron supplements. Patient just came off her cycle. Patient had labs done which were remarkable for severe anemia. Patient was typed and screened. Patient was given 1 unit of packed red blood cells. Patient admitted to the hospital service for further evaluation treatment. Patient agrees with plan of care. Critical care time documented due to the multiple reassessments, prolonged time at the bedside, interpretation of diagnostics and labs. - Differential Diagnosis Anemia, heavy vaginal bleeding, iron deficiency, weakness, fatigue, SOB Critical Care Time: Yes Critical care time in (mins) excluding proc time.: 35 Critical care attestation.: If time is entered above; I have spent that time in minutes in the direct care of this critically ill patient, excluding procedure time. Critical Care Time: 35 minutes ED Disposition Clinical Impression: Shortness of breath Anemia Qualifiers: Anemia type: unspecified type Qualified Code(s): D64.9 - Anemia, unspecified Fatigue Qualifiers: Fatigue type: unspecified Qualified Code(s): R53.83 - Other fatigue Disposition: 09 OP ADMIT IP TO THIS HOSP Is pt being admited?: Yes Does the pt Need Aspirin: No Condition: Stable Time of Disposition: 21:36
[2021-04-11] MEDS ORDERED: ACETAMINOPHEN 325 MG TAB PO ONE (21:18)
[2021-04-11] MEDS ORDERED: ONDANSETRON 4 MG/2 ML INJ IV PRN (22:28)
[2021-04-11] MEDS ORDERED: ALBUTEROL 2.5 MG/3 ML NEBU IH PRN (22:28)
[2021-04-11] MEDS ORDERED: ACETAMINOPHEN 325 MG TAB PO PRN (22:28)
[2021-04-11] MEDS ORDERED: diphenhydrAMINE 50 MG/ML VIAL IV PRN (22:29)
--- NOTE | 2021-04-11 23:08 | History and Physical Report ---
History of Present Illness Date of examination: 04/11/21 Date of admission: 04/11/21 21:32 Chief complaint: fatigue and generalized weakness History of present illness: 40-year-old -[place] female with history of anemia and menorrhagia who presents to [facility] with complaints of weakness and fatigue. Patient states she has been experiencing worsening generalized weakness, fatigue, and dyspnea on exertion for the past 4 to 5 days. States that her menstrual cycle started on April 02 and ended on April 16. She has a history of menorrhag ia and states that her menstrual cycle was average with minimal blood clots. She was previously on iron supplements but has not taken any in a while; instead she takes a daily multivitamin which has fractional amount of elemental iron supplement in it. Patient states her symptoms are exacerbated with movement and activity and improves with rest. Denies nausea, vomiting, fever, chest pain, headache, blurred vision, abdominal pain, palpitations, hemoptysis, melena, hematochezia, recent injury/fall, or recent sick contacts Review of medical record shows patient was seen in August 2019 and treated for symptomatic acute on chronic blood loss anemia. Past History Past Medical History: anemia (s/p anemia), other (Menorrhagia started 2004 and was d/t Mirena, underarm lipoma removed as child) Past Surgical History: (x1) Social history: lives with family, smoking (Intermittently), alcohol abuse, full code. denies: prescription drug abuse, IV drug use (paternal aunt has breast ca, sister has menorrhagia and anemia) Family history: other (paternal aunt has breast ca, sister has menorrhagia and anemia) Medications and Allergies Allergies Allergy/AdvReac Type Severity Reaction Status Date / Time No Known Allergies Allergy Verified 05/25/20 18:05 Home Medications Medication Instructions Recorded Confirmed Last Taken Type Cyclobenzaprine [Flexeril 10 MG 5 mg PO Q8H PRN #20 tablet 09/02/19 Unknown Rx TAB] Ibuprofen [Motrin] 600 mg PO Q8H PRN #30 tablet 09/02/19 Unknown Rx Multivitamin Tab W-MINERAL 1 each PO QDAY #30 tablet 09/02/19 Unknown Rx [Multiple Vitamin/Mineral (Theragran M)] medroxyPROGESTERone ACETATE 10 mg PO QDAY #30 tablet 09/02/19 Unknown Rx [Provera] Active Meds: Active Medications Acetaminophen (Acetaminophen 325 Mg Tab) 650 mg PO Q4H PRN PRN Reason: Pain MILD(1-3)/Fever >100.5/WINKLER Albuterol (Albuterol 2.5 Mg/3 Ml Nebu) 2.5 mg IH Q4HRT PRN PRN Reason: Shortness Of Breath Diphenhydramine HCl (Diphenhydramine 50 Mg/Ml Vial) 25 mg IV Q6H PRN PRN Reason: Itching Famotidine (Famotidine 10 Mg Tab) 10 mg PO BID JAIME Ferrous Sulfate (Ferrous Sulfate 325 Mg Tab) 325 mg PO QDAY JAIME Ondansetron HCl (Ondansetron 4 Mg/2 Ml Inj) 4 mg IV Q6H PRN PRN Reason: Nausea And Vomiting Sodium Chloride (Sodium Chloride 0.9% 10 Ml Flush Syringe) 10 ml IV BID JAIME Sodium Chloride (Sodium Chloride 0.9% 10 Ml Flush Syringe) 10 ml IV PRN PRN PRN Reason: LINE FLUSH Review of Systems All systems: negative Exam - Physical Exam Narrative exam: Physical exam General appearance: Present: No acute distress, alert and oriented 3, well- developed well-nourished, [place] - EENT Eyes: Present: PERRL, EOM intact ENT: hearing intact, normal dentition - Neck Neck: Present: supple, normal ROM - Respiratory Respiratory effort: Non-labored Respiratory: Clear throughout - Cardiovascular Heart rate: 85 (bpm) Rhythm: Sinus Heart Sounds: Present: S1 & S2. Absent: rub, click - Extremities Extremities: no ischemia, pulses intact, - Peripheral Assessment Peripheral Pulses: within normal limits - Abdominal General gastrointestinal: soft, non-tender, normal bowel sounds - Integumentary Integumentary: Present: warm, dry - Musculoskeletal Musculoskeletal: Able to move all extremities -Neurological Neurological: CN II-XII intact - Psychiatric Psychiatric: cooperative - Constitutional Vitals: Temp Pulse Resp BP Pulse Ox 98.1 F 86 18 131/84 100 04/11/21 22:49 04/11/21 22:49 04/11/21 22:49 04/11/21 22:49 04/11/21 22:49 HEART Score - HEART Score Troponin: Troponin T < 0.010 ng/mL (0.00-0.029) 04/11/21 14:49 Results - Labs CBC & Chem 7: 04/11/21 14:49 04/11/21 14:49 Labs: Laboratory Last Values WBC 7.1 K/mm3 (4.5-11.0) 04/11/21 14:49 RBC 4.27 M/mm3 (3.65-5.03) 04/11/21 14:49 Hgb 6.2 gm/dl (10.1-14.3) L 04/11/21 14:49 Hct 23.0 % (30.3-42.9) L 04/11/21 14:49 MCV 54 fl (79-97) L 04/11/21 14:49 MCH 15 pg (28-32) L 04/11/21 14:49 MCHC 27 % (30-34) L 04/11/21 14:49 RDW 23.2 % (13.2-15.2) H 04/11/21 14:49 Plt Count 457 K/mm3 (140-440) H 04/11/21 14:49 Sodium 134 mmol/L (137-145) L 04/11/21 14:49 Potassium 3.7 mmol/L (3.6-5.0) 04/11/21 14:49 Chloride 102.4 mmol/L (98-107) 04/11/21 14:49 Carbon Dioxide 23 mmol/L (22-30) 04/11/21 14:49 Anion Gap 12 mmol/L 04/11/21 14:49 BUN 6 mg/dL (7-17) L 04/11/21 14:49 Creatinine 0.6 mg/dL (0.6-1.2) 04/11/21 14:49 Estimated GFR > 60 ml/min 04/11/21 14:49 BUN/Creatinine Ratio 10 % 04/11/21 14:49 Glucose 95 mg/dL (65-100) 04/11/21 14:49 Calcium 8.5 mg/dL (8.4-10.2) 04/11/21 14:49 Total Bilirubin 0.20 mg/dL (0.1-1.2) 04/11/21 14:49 AST 20 units/L (5-40) 04/11/21 14:49 ALT < 5 units/L (7-56) L 04/11/21 14:49 Alkaline Phosphatase 69 units/L (35-129) 04/11/21 14:49 Troponin T < 0.010 ng/mL (0.00-0.029) 04/11/21 14:49 Total Protein 7.7 g/dL (6.3-8.2) 04/11/21 14:49 Albumin 4.1 g/dL (3.9-5) 04/11/21 14:49 Albumin/Globulin Ratio 1.1 % 04/11/21 14:49 Urine Color Colorless (Yellow) 04/11/21 Unknown Urine Turbidity Clear (Clear) 04/11/21 Unknown Urine pH 8.0 (5.0-7.0) H 04/11/21 Unknown Ur Specific [place] 1.002 (1.003-1.030) L 04/11/21 Unknown Urine Protein <15 mg/dl mg/dL (Negative) 04/11/21 Unknown Urine Glucose (UA) Neg mg/dL (Negative) 04/11/21 Unknown Urine Ketones Neg mg/dL (Negative) 04/11/21 Unknown Urine Blood Neg (Negative) 04/11/21 Unknown Urine Nitrite Neg (Negative) 04/11/21 Unknown Urine Bilirubin Neg (Negative) 04/11/21 Unknown Urine Urobilinogen < 2.0 mg/dL (<2.0) 04/11/21 Unknown Ur Leukocyte Esterase Neg (Negative) 04/11/21 Unknown Urine WBC (Auto) 1.0 /HPF (0.0-6.0) 04/11/21 Unknown Urine RBC (Auto) 1.0 /HPF (0.0-6.0) 04/11/21 Unknown U Epithel Cells (Auto) 1.0 /HPF (0-13.0) 04/11/21 Unknown Urine Bacteria (Auto) 1+ /HPF (Negative) 04/11/21 Unknown Blood Type A POSITIVE 04/11/21 18:20 Antibody Screen Negative 04/11/21 18:20 Crossmatch See Detail 04/11/21 18:20 - Imaging and Cardiology Chest x-ray: report reviewed (IMPRESSION: 1. No acute findings. ), image reviewed Assessment and Plan Assessment and plan: Acute on chronic blood loss anemia -History of menorrhagia, last menstrual cycle 04/08 -Previously seen by [facility] and started on Provera to help with menorrhagia -Last transfusion August 2019 -Admits to noncompliance with oral iron supplementation -Hemoglobin on admission 6.2 -Receiving 1 unit PRBC in ED, follow-up on post transfusion labs -Continue to monitor hemoglobin -Transfuse as needed Dyspnea -Related to #1 -Receiving PRBC transfusion -Supportive care History of menorrhagia -Previously seen by [facility] and started on Provera to help with menorrhagia -menorrhagia started 2004 and was d/t Mirena that was placed 2001 after her delivery -Mirena removed, however menorrhagia continued -Requires outpatient follow-up with [facility]ESSION[facility] as needed DVT PPx -On Pepcid Hold all anticoagulations due to symptomatic anemia VTE prophylaxis?: Mechanical Reason for no VTE Prophylaxis: Medical contraindication
[2021-04-11] MEDS ORDERED: KETOROLAC 30 MG/1 ML INJ IV ONE (23:51)
[2021-04-12] MEDS ORDERED: FAMOTIDINE 10 MG TAB PO SCH (10:00)
[2021-04-12] MEDS ORDERED: FERROUS SULFATE 325 MG TAB PO SCH (10:00)
[2021-04-12] MEDS ORDERED: SODIUM FERRIC GLUCON/SUCRO 125 MG in SODIUM CHLORIDE 0.9% 100 ML IV SCH (10:00)
[2021-04-12] MEDS ORDERED: FAMOTIDINE 20 MG/2 ML INJ IV SCH (10:00)
--- NOTE | 2021-04-12 13:54 | Discharge Summary ---
Providers - Providers Date of Admission: 04/11/21 21:32 Date of discharge: 04/12/21 Attending physician: GONZALO CABRERA 04/11/21 22:56 Consult to Physician [CONS] Routine Comment: Consulting Provider: BRIDGETTE BROWN Physician Instructions: Reason For Exam: acute on chronic anemia Primary care physician: [facility] Hospitalization Condition: Stable Pertinent studies: Chest XRY, Pelvic US, Transvaginal US Hospital course: 40-year-old -[place] female with history of anemia and menorrhagia who presents to [facility] ED with complaints of weakness and fatigue. States that her menstrual cycle started on April 02 and ended on April 16. She has a history of menorrhagia and states that her menstrual cycle was average with minimal blood clots. She was previously on iron supplements but has not taken any in a while; Review of medical record shows patient was seen in August 2019 and treated for symptomatic acute on chronic blood loss anemia. In the ER patient noted to have hemoglobin of 6.2, she was transfused 1 unit of packed RBC. Patient was recommended to follow-up with [facility]NAGER outpatient. She verbalized understanding and was then discharged home in stable condition with outpatient follow-up. Disposition: - TO HOME OR SELFCARE Final Discharge Diagnosis (Prints w/discharge instructions): Acute on chronic blood loss anemia. Severe symptomatic anemia with dyspnea. History of menorrhagia. Obesity Time spent for discharge: 34 minutes Core Measure Documentation - Palliative Care Palliative Care/ Comfort Measures: Not Applicable - Core Measures Any of the following diagnoses?: none Exam - Physical Exam Narrative exam: GENERAL: well-developed and well-nourished female lying on bed appeared to be in no discomfort. HEENT: Normocephalic. Atraumatic. No conjunctival congestion or icterus. Patient has moist mucous membranes. NECK: Supple. Trachea midline. CHEST/LUNGS: Clear to auscultated bilaterally, breathing nonlabored. No wheezes crackles or rhonchi. HEART/CARDIOVASCULAR: Regular in rate and rhythm. S1 and S2 positive. ABDOMEN: Abdomen is soft, nontender. Patient has normal bowel sounds. SKIN: There is no rash. Warm and dry. NEURO: No focal motor deficit. Follows command. MUSCULOSKELETAL: No joint effusion or tenderness. EXTRIMITY: No edema, no cyanosis or clubbing. PSYCH: Cooperative. - Constitutional Vitals: Temp Pulse Resp BP Pulse Ox 98.7 F 65 18 119/70 99 04/12/21 11:57 04/12/21 11:57 04/12/21 11:57 04/12/21 11:57 04/12/21 11:57 Plan Activity: advance as tolerated Weight Bearing Status: Weight Bear as Tolerated Diet: low fat, low salt Additional Instructions: Follow-up with your [facility]TE[facility]ETING MANAGER in 1 week. Repeat CBC in 1 week. Continue iron supplementation Follow up with: PRIMARY CARE, [Primary Care Provider] - 3-5 Days Prescriptions: Ferrous Sulfate [Feosol 325 MG tab] 325 mg PO QDAY #30 tablet
--- NOTE | 2021-04-12 14:19 | Electrocardiograph Report ---
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
--- NOTE | 2021-04-12 14:28 | Electrocardiograph Report ---
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
--- NOTE | 2021-04-12 14:52 | Hem/Onc Consultation ---
History of Present Illness - Reason for Consult Consult date: 04/12/21 - History of Present Illness 40 year old female who presents to [facility] for severe anemia to heavy menstrual bleeding with fatigue and weakness, and SOB on exertion for 5 days. Long menses lasting approx 15 days. Non compliant with iron supplements. Received 1 unit PRBC. doing better, more energy now denies F/C PMH Hx of Psuedotumor cerebri previously on Diamox. Neg for sickle cell trait or disease. Labs: Hgb 6.2/23.0 MCV 54 Plts 457 IMP: Severe microcytic anemia likely due to iron deficiency h/o heavy menstrual bleeding Plan: Ferrlicit 125mg IV daily while in hospital labs to include coags, Hgb electropheresis Iron studies not interpretable because she had PRBC Will need nurse obgyn follow-up and pelvic imaging Iron testing and CBC 2-3 weeks after hospitalization if possible Follow-up in our practice via televisit after labs Abnormal Labs 04/11/21 04/11/21 04/11/21 14:49 14:49 18:20 Hgb 6.2 L Hct 23.0 L MCV 54 L MCH 15 L MCHC 27 L RDW 23.2 H Plt Count 457 H Sodium 134 L BUN 6 L ALT < 5 L Urine pH Ur Specific [place] Crossmatch See Detail 04/11/21 Unknown Hgb Hct MCV MCH MCHC RDW Plt Count Sodium BUN ALT Urine pH 8.0 H Ur Specific [place] 1.002 L Crossmatch Past History Past Medical History: anemia (s/p anemia), other (Menorrhagia started 2004 and was d/t Mirena, underarm lipoma removed as child) Past Surgical History: (x1) Social history: lives with family, smoking (Intermittently), alcohol abuse, full code. denies: prescription drug abuse, IV drug use (paternal aunt has breast ca, sister has menorrhagia and anemia) Family history: other (paternal aunt has breast ca, sister has menorrhagia and anemia) Medications and Allergies Allergies Allergy/AdvReac Type Severity Reaction Status Date / Time No Known Allergies Allergy Verified 05/25/20 18:05 Home Medications Medication Instructions Recorded Confirmed Last Taken Type Cyclobenzaprine [Flexeril 10 MG 5 mg PO Q8H PRN #20 tablet 09/02/19 Unknown Rx TAB] Ibuprofen [Motrin 600 MG tab] 600 mg PO Q8H PRN #30 tablet 09/02/19 Unknown Rx Multivitamin Tab W-MINERAL 1 each PO QDAY #30 tablet 09/02/19 Unknown Rx [Multiple Vitamin/Mineral (Theragran M)] medroxyPROGESTERone ACETATE 10 mg PO QDAY #30 tablet 09/02/19 Unknown Rx [Provera] Ferrous Sulfate [Feosol 325 MG tab] 325 mg PO QDAY #30 tablet 04/12/21 Unknown Rx Active Meds: Active Medications Acetaminophen (Acetaminophen 325 Mg Tab) 650 mg PO Q4H PRN PRN Reason: Pain MILD(1-3)/Fever >100.5/[place] Acetaminophen/Butalbital/Caffeine (Butalb/Acetaminophen/Caffeine Tab) 1 tab PO Q4H PRN PRN Reason: Headache Albuterol (Albuterol 2.5 Mg/3 Ml Nebu) 2.5 mg IH Q4HRT PRN PRN Reason: Shortness Of Breath Diphenhydramine HCl (Diphenhydramine 50 Mg/Ml Vial) 25 mg IV Q6H PRN PRN Reason: Itching Famotidine (Famotidine 10 Mg Tab) 10 mg PO BID [facility] Last Admin: 04/12/21 09:05 Dose: 10 mg Documented by: Ferrous Sulfate (Ferrous Sulfate 325 Mg Tab) 325 mg PO QDAY [facility] Last Admin: 04/12/21 09:05 Dose: 325 mg Documented by: Ferric Sodium Gluconate Complex 125 mg/ Sodium Chloride 110 mls @ 100 mls/hr IV Q24H [facility] Stop: 04/15/21 09:59 Last Admin: 04/12/21 11:02 Dose: 100 mls/hr Documented by: Ondansetron HCl (Ondansetron 4 Mg/2 Ml Inj) 4 mg IV Q6H PRN PRN Reason: Nausea And Vomiting Last Admin: 04/11/21 23:57 Dose: 4 mg Documented by: Sodium Chloride (Sodium Chloride 0.9% 10 Ml Flush Syringe) 10 ml IV BID [facility] Last Admin: 04/12/21 11:02 Dose: 10 ml Documented by: Sodium Chloride (Sodium Chloride 0.9% 10 Ml Flush Syringe) 10 ml IV PRN PRN PRN Reason: LINE FLUSH Exam - Constitutional Vitals: Last Vital Signs Temp 98.7 F 04/12/21 11:57 Pulse 65 04/12/21 11:57 Resp 18 04/12/21 11:57 BP 119/70 04/12/21 11:57 Pulse Ox 99 04/12/21 11:57 Results - Labs lab Results: Laboratory Results - last 24 hr 04/11/21 04/11/21 04/11/21 14:49 14:49 18:20 WBC 7.1 RBC 4.27 Hgb 6.2 L Hct 23.0 L MCV 54 L MCH 15 L MCHC 27 L RDW 23.2 H Plt Count 457 H Sodium 134 L Potassium 3.7 Chloride 102.4 Carbon Dioxide 23 Anion Gap 12 BUN 6 L Creatinine 0.6 Estimated GFR > 60 BUN/Creatinine Ratio 10 Glucose 95 Calcium 8.5 Total Bilirubin 0.20 AST 20 ALT < 5 L Alkaline Phosphatase 69 Troponin T < 0.010 Total Protein 7.7 Albumin 4.1 Albumin/Globulin Ratio 1.1 Urine Color Urine Turbidity Urine pH Ur Specific Farina Urine Protein Urine Glucose (UA) Urine Ketones Urine Blood Urine Nitrite Urine Bilirubin Urine Urobilinogen Ur Leukocyte Esterase Urine WBC (Auto) Urine RBC (Auto) U Epithel Cells (Auto) Urine Bacteria (Auto) Blood Type A POSITIVE Antibody Screen Negative Crossmatch See Detail 04/11/21 Unknown WBC RBC Hgb Hct MCV MCH MCHC RDW Plt Count Sodium Potassium Chloride Carbon Dioxide Anion Gap BUN Creatinine Estimated GFR BUN/Creatinine Ratio Glucose Calcium Total Bilirubin AST ALT Alkaline Phosphatase Troponin T Total Protein Albumin Albumin/Globulin Ratio Urine Color Colorless Urine Turbidity Clear Urine pH 8.0 H Ur Specific [place] 1.002 L Urine Protein <15 mg/dl Urine Glucose (UA) Neg Urine Ketones Neg Urine Blood Neg Urine Nitrite Neg Urine Bilirubin Neg Urine Urobilinogen < 2.0 Ur Leukocyte Esterase Neg Urine WBC (Auto) 1.0 Urine RBC (Auto) 1.0 U Epithel Cells (Auto) 1.0 Urine Bacteria (Auto) 1+ Blood Type Antibody Screen Crossmatch
[2021-04-12] MEDS ORDERED: BUTALB/ACETAMINOPHEN/CAFFEINE TAB PO PRN (15:00)
--- NOTE | 2021-04-12 15:22 | Ultrasound Report ---
ULTRASOUND PELVIS INDICATION / CLINICAL INFORMATION: Left ovarian mass. TECHNIQUE: Transabdominal and Transvaginal. Duplex Color Doppler used: Yes. COMPARISON: Pelvic ultrasound 09/01/2019. FINDINGS: UTERUS: - Appearance: No significant abnormality. - Size (cm): 7.5 cm - Endometrial Complex (if present): There is a hyperechoic soft tissue focus measuring 8 mm within th e endometrium. Thickness in cm (if measured) = 1.1 cm - Mass or cyst: None. - Additional findings: None. RIGHT ADNEXA: The right ovary measures 3.3 cm. 2.0 cm simple appearing follicular cyst. Normal color Doppler blood flow. LEFT ADNEXA: The left ovary measures 2.5 cm. Subcentimeter follicular cyst. Normal color Doppler bloo d flow. URINARY BLADDER: No significant abnormality. FREE FLUID: None. ADDITIONAL FINDINGS: None. IMPRESSION: 1. There is an 8mm hyperechoic soft tissue focus within the endometrium. Differentials include endome trial polyp versus leiomyoma. Scribed by: Cassi Rousseau RDMS, RVT Scribed: 04/12/2021 1:56 PM I have reviewed the images, agree with this report, and edited this report as needed. Signer Name: Pedro Rivas MD Signed: 04/12/2021 3:18 PM Workstation Name: [id number]
[2021-04-12 16:36] VITALS: BP 116/74
== END 2021-04-12 20:10 | disposition home or self-care (01) ==
LOC: ED 12:47 → 3A 21:32 → 3B-SURG 23:59
PROVIDERS: ADMIT Internal Medicine Geriatric Medicine; ATTEND Internal Medicine
DX: D62 Acute posthemorrhagic anemia (principal); R06.00 Dyspnea, unspecified; N92.0 Excessive and frequent menstruation with regular cycle; E11.9 Type 2 diabetes mellitus without complications; R53.1 Weakness; R53.83 Other fatigue; Z98.891 History of uterine scar from previous surgery; Z79.899 Other long term (current) drug therapy; Z98.890 Other specified postprocedural states; Z87.891 Personal history of nicotine dependence
CPT/HCPCS: 36415; 36430; 71046; 76830; 76856; 80053; 81001; 84484; 85014; 85018; 85027; 86850; 86900; 86901; 86920; 93005; 96361; 96365; 96375; 99291; G0378; J1885; J2405; J2916; J7040; P9016